=== PATIENT | female | born 1965 | race Caucasian/White ===

== ENCOUNTER 2023-11-15 04:30 | Inpatient (IN) | payer MEDICARE, MEDICAID, SELFPAY ==
[2023-11-14 20:35] VITALS: BP 92/73; BMI 30.3
[2023-11-14 21:00] LABS: % Basophils 0.3 % (0-2); % Eosinophils 0.8 % (0-6); % Immature Granulocytes 0.5 % (0-0.5); % Lymphocytes 10.2 % (20.5-51.1); % Monocytes 5.4 % (1.7-9.3); % Neutrophils 82.8 % (42.2-75.2); Absolute Eosinophils 0.1 10^3/uL (0-0.7); Absolute Lymphocytes 0.7 10^3/uL (1.2-3.4); Absolute Monocytes 0.4 10^3/uL (0.1-0.6); Absolute Neutrophils 5.5 10^3/uL (1.4-6.5); Hematocrit 36.2 % (37.0-47.0); Hemoglobin 12.1 g/dL (12.0-16.0); Mean Corp Hgb Conc. 33.4 g/dL (33.0-37.0); Mean Corpuscular Hgb 32.3 pg (27.0-31.0); Mean Corpuscular Volume 96.5 fL (81.0-99.0); Mean Platelet Volume 11.2 fL (7.4-10.4); Nucleated Red Blood Cells % 0 %; Platelet Count 381 10^3/uL (130-400); Red Blood Cell Count 3.75 10^6/uL (4.20-5.40); Red Cell Dist. Width 17.7 % (11.5-14.5); White Blood Cell Count 6.6 10^3/uL (4.8-10.8)
[2023-11-14 21:33] LABS: ALT (SGPT) 90 U/L (0-35); AST (SGOT) 121 U/L (14-36); Albumin 2.9 g/dl (3.5-5.0); Alkaline Phosphatase 1081 U/L (38-126); Blood Urea Nitrogen 14 mg/dl (7-17); Carbon Dioxide 17 mmol/L (22-30); Chloride 105 mmol/L (98-107); Estimated Creatinine Clearance 78 ml/min; Glucose 227 mg/dl (70-99); Lipase 27 U/L (23-300); Potassium 3.4 mmol/L (3.5-5.1); Sodium 138 mmol/L (135-145); Total Protein 6.8 g/dl (6.3-8.2); eGFR > 60.00
[2023-11-14 21:53] LABS: Total Bilirubin 26.3 mg/dl (0.2-1.3)
[2023-11-14 22:38] VITALS: BP 132/72
--- NOTE | 2023-11-14 22:48 | ED TECH ---
This PCT was walking pt. and visitor to room 1. Pt. was slowly walking w a steady gait. This PCT offered a wheelchair for pt. Pt's visitor said 'she can make it'. This PCT turned around and pt. tripped over her feet and landed on hands and knees.
Pt. immediately stood up, stating 'I felt dizzy' and Leonidas PCT and myself assisted her into a wheelchair and brought to room 1. This PCT asked if was hurt and pt. stated 'I'm okay'.
[2023-11-14 23:00] VITALS: BP 102/79
--- NOTE | 2023-11-14 23:00 | ED.GENMED ---
History of Present Illness
<SHEELA Martinez - Last Filed: 11/15/23 01:58>
General
Chief Complaint: Abnormal Lab Value
Source: patient and family (POA - brother)
Time Seen by Provider: 11/14/23 22:41
Travel History
Have you had any contact with someone who has COVID-19?: No
Do you have any symptoms of coronavirus? Fever > 100 degrees, chills, cough, shortness of breath, sore throat, loss of taste or smell, muscle aches, or headache?: No
History of Present Illness
History of Present Illness:
Pt is a 58 year old female presenting to the ER with her brother (Chaparro) for jaundice and worsening diarrhea x 3 days. Pt has a PMHx of developmental delay, schizophrenia which she takes risperidone and benztropine for, and lives at home with her
brother who is her POA. He states approximately 10 days ago her appetite decreased and she vomited once or twice. She has been having diarrhea for approximately 1 week, but in the last 3 days it has become increasingly severe. She has taken nothing
to attempt to relieve her diarrhea. He states she has commented on mild lower abdominal pain and back pain and states it comes and goes. While she is itchy he states that is not new for her as she frequently itches. He denies any fever, headache,
chest pain, significant SOB, palpitations, or urinary symptoms. He states their mother, who passed last year, had her gallbladder removed. He states his sister does not smoke or drink alcohol.
Past History
<SHEELA Martinez - Last Filed: 11/15/23 01:58>
Past History
ED Past Medical History: Psychiatric
Social History
Tobacco: Non-smoker
Alcohol: None
Living: with family
Review of Systems
<SHEELA Martinez - Last Filed: 11/15/23 01:58>
Review of Systems
Allergies reviewed?: Yes
Other source history: family
EENT: Reports no symptoms
Respiratory: Reports no symptoms
Cardiac: Reports no symptoms
ABD/GI: Reports abdominal pain, vomiting, diarrhea and anorexia
: Reports no symptoms
Musculoskeletal: Reports back pain
Skin: Reports itching and other (jaundice)
Endocrine: Reports no symptoms
Hematologic/Lymphatic: Reports no symptoms
Psychiatric: Reports no symptoms
Phy Exam
<SHEELA Martinez - Last Filed: 11/15/23 01:58>
General Physical Exam
General Presentation: no apparent distress
General age: appears stated age
General Skin: other (significantly jaundiced)
General Habitus: obese
Gastrointestinal Exam
Gastrointestinal Exam: normal bowel sounds and tender
Palpation: left upper quadrant: Mild tenderness (no facial grimace with palpation ), right upper quadrant: Mild tenderness (no facial grimace with palpation ) and right lower quadrant: Mild tenderness (no facial grimace with palpation )
Liver Exam: other (negative asterixis )
Neurological Exam
Neurological Exam: alert
Skin Exam
Skin Exam: jaundice
Psychiatric Exam
Psychiatric Exam: normal mood/affect
Course
<Marina Catalan [facility] - Last Filed: 11/15/23 01:58>
Orders/Labs/Results
Orders:
Orders
11/14/23 20:51
Complete Blood Count/With Diff Urgent
Comprehensive Metabolic Panel Urgent
Lipase Urgent
11/14/23 22:42
US Abdomen Complete/Upper Urgent
Comment:
Reason For Exam: Jaundice, elev tbili
11/15/23 00:00
CT Abd/pelvis W Iv Cont Urgent
Comment:
Reason For Exam: abdoinal painjaundice, distended GB
11/15/23 00:15
0.9% Sodium Chloride 1000 ml [Nss] 1,000 ml IV 250 mls/hr
11/15/23 01:16
Hepatitis A IgM Antibody Urgent
Hepatitis B Core Ab, IgM Urgent
Hepatitis B Surface Antibody Urgent
Hepatitis B Surface Antigen Urgent
Hepatitis C Antibody Urgent
PTT Urgent
Prothrombin Time Urgent
Abnormal Lab Results
11/14/23 11/15/23
20:51 01:16
RBC 3.75 L 10^6/uL
(4.20-5.40)
Hct 36.2 L %
(37.0-47.0)
MCH 32.3 H pg
(27.0-31.0)
RDW 17.7 H %
(11.5-14.5)
MPV 11.2 H fL
(7.4-10.4)
Absolute Lymphs (auto) 0.7 L 10^3/uL
(1.2-3.4)
Neutrophils % 82.8 H %
(42.2-75.2)
Lymphocytes % 10.2 L %
(20.5-51.1)
PT 21.4 H Sec
(11.4-14.6)
APTT 50.3 H Sec
(23.4-35.0)
Potassium 3.4 L mmol/L
(3.5-5.1)
Carbon Dioxide 17 L mmol/L
(22-30)
Glucose 227 H mg/dl
(70-99)
Total Bilirubin 26.3 H* mg/dl
(0.2-1.3)
AST 121 H U/L
(14-36)
ALT 90 H U/L
(0-35)
Alkaline Phosphatase 1081 H U/L
(38-126)
Albumin 2.9 L g/dl
(3.5-5.0)
11/14/23 20:51
11/14/23 20:51
Vital Signs
Initial and Last Documented VS:
Initial Vital Signs
Temp Pulse Resp BP Pulse Ox
99.2 F 97 16 92/73 100
11/14/23 20:35 11/14/23 20:35 11/14/23 20:35 11/14/23 20:35 11/14/23 20:35
Last Documented Vital Signs
Temp Pulse Resp BP Pulse Ox
99.2 F 71 21 103/57 100
11/14/23 20:35 11/15/23 02:30 11/15/23 02:30 11/15/23 02:00 11/15/23 02:30
<Juan Jose Jorge, DO - Last Filed: 11/15/23 02:53>
Orders/Labs/Results
Orders:
Orders
11/14/23 20:51
Complete Blood Count/With Diff Urgent
Comprehensive Metabolic Panel Urgent
Lipase Urgent
11/14/23 22:42
US Abdomen Complete/Upper Urgent
Comment:
Reason For Exam: Jaundice, elev tbili
11/15/23 00:00
CT Abd/pelvis W Iv Cont Urgent
Comment:
Reason For Exam: abdoinal painjaundice, distended GB
11/15/23 00:15
0.9% Sodium Chloride 1000 ml [Nss] 1,000 ml IV 250 mls/hr
11/15/23 01:16
Hepatitis A IgM Antibody Urgent
Hepatitis B Core Ab, IgM Urgent
Hepatitis B Surface Antibody Urgent
Hepatitis B Surface Antigen Urgent
Hepatitis C Antibody Urgent
PTT Urgent
Prothrombin Time Urgent
Abnormal Lab Results
11/14/23 11/15/23
20:51 01:16
RBC 3.75 L 10^6/uL
(4.20-5.40)
Hct 36.2 L %
(37.0-47.0)
MCH 32.3 H pg
(27.0-31.0)
RDW 17.7 H %
(11.5-14.5)
MPV 11.2 H fL
(7.4-10.4)
Absolute Lymphs (auto) 0.7 L 10^3/uL
(1.2-3.4)
Neutrophils % 82.8 H %
(42.2-75.2)
Lymphocytes % 10.2 L %
(20.5-51.1)
PT 21.4 H Sec
(11.4-14.6)
APTT 50.3 H Sec
(23.4-35.0)
Potassium 3.4 L mmol/L
(3.5-5.1)
Carbon Dioxide 17 L mmol/L
(22-30)
Glucose 227 H mg/dl
(70-99)
Total Bilirubin 26.3 H* mg/dl
(0.2-1.3)
AST 121 H U/L
(14-36)
ALT 90 H U/L
(0-35)
Alkaline Phosphatase 1081 H U/L
(38-126)
Albumin 2.9 L g/dl
(3.5-5.0)
11/14/23 20:51
11/14/23 20:51
Vital Signs
Initial and Last Documented VS:
Initial Vital Signs
Temp Pulse Resp BP Pulse Ox
99.2 F 97 16 92/73 100
11/14/23 20:35 11/14/23 20:35 11/14/23 20:35 11/14/23 20:35 11/14/23 20:35
Last Documented Vital Signs
Temp Pulse Resp BP Pulse Ox
99.2 F 71 21 103/57 100
11/14/23 20:35 11/15/23 02:30 11/15/23 02:30 11/15/23 02:00 11/15/23 02:30
<SHEELA Martinez - Last Filed: 11/15/23 01:58>
MDM/Problems Addressed
Differential Diagnosis Includes:
Acute liver toxicity due to medication, cirrhosis, hepatitis, choledocholithiasis, biliary tract infection, pancreatitis
MDM/Problems Addressed:
Jaundice and diarrhea x 3 days
Chronic conditions affecting care: Neurological disorder
<SHEELA Martinez - Last Filed: 11/15/23 01:58>
*Critical Care Note
Total Time (30-74mins, 75-104mins- exclusive of procedures): Not Applicable
ED Attending Note
<SHEELA Martinez - Last Filed: 11/15/23 01:58>
-
Portions of this chart may have been created with voice recognition software.� Occasional wrong word or��sound alike� substitutions may have occurred due to the inherent limitations of voice recognition software.
<Juan Jose Jorge DO - Last Filed: 11/15/23 02:53>
ED Attending Note
Patient seen and examined by attending physician: Yes
I performed the substantive portion of visit, reviewed & personally made and approve the management plan that is documented in note by myself or MITCHEL.: Yes
ED Attending Note:
58-year-old female who presents with jaundice for the last 3 days. She has been having diarrhea during this time. Patient was seen by her primary care provider yesterday and had blood work drawn. Today patient was told that her bilirubin was
elevated. Patient started on risperidone recently. No recent illnesses, or heavy alcohol consumption reported. Patient was seen in conjunction with the PA student. I have reviewed and agree with the history and treatment plan presented. On my
independent physical exam, patient is awake, at baseline according to brother. Brother states that patient has developmental delays. Patient is in no respiratory distress. She answers with simple answers. There is positive scleral icterus. She
presents with jaundice to her skin. Heart is regular rate and rhythm. Abdomen is soft slightly obese.
Vital signs are stable. Patient not hypoxic
Nursing note reviewed. I agree with nursing documentation up to this point in time.
Home Meds and allergies reviewed.
NUMBER AND COMPLEXITY OF PROBLEMS ADDRESSED AT THE ENCOUNTER
� Chronic conditions affecting care:
� Acute Exacerbation and/or Progression of Chronic Illness:
� Differential Diagnosis includes: Pancreatic CVA, obstructing cholecystitis, hepatitis, medication change
AMOUNT AND/OR COMPLEXITY OF DATA TO BE REVIEWED AND ANALYZED
I performed an independent evaluation of the following and my interpretation is:
EKG:
CT:
X-rays:
Ultrasound:
Laboratory Studies: Total bilirubin is 26.3, AST is 121, ALT is 90, alk phos is 1081.
Other:
Review of other/old records:
Clinical information was obtained by an independent historian:
Prescriptions/Medications Considered but not given:
Further testing considered but not performed:
RISK OF COMPLICATIONS AND/OR MORBIDITY OR MORTALITY OF PATIENT MANAGEMENT
Social determinants of health affecting care: Good Social Support
Discussion with other providers:
Escalation of care including admission/observation vs risk of discharge considered:
CRITICAL CARE NOTE:
Critical care statement: A total of 30 minutes of critical care time was provided for this patient. This time is separate from time utilized to perform the aforementioned documented procedures. Aggregate critical care time includes only time
during which I was engaged in work directly related to the patient's care, as described above, whether at the bedside or elsewhere in the Emergency Department.
Total Time (exclusive of procedures):30
Update:
Discharge Plan
Departure
Patient Disposition: Admit
Date of Disposition: 11/15/23
Time of Disposition: 02:52
Admit to: IMU
Presentation/result/management discussed w/ accepting MD/DO: Hospitalist
Patient with high blood pressure during this ER visit?: No
Condition: Fair
Discharge Problem:
Painless jaundice, Adenocarcinoma of pancreas
Referrals:
Fitz Modi MD [Family Provider] -
Interventions
Interventions:
*Risk Screen - Suicide Last Done: 11/14/23 20:35
*General Assessment Last Done: 11/15/23 01:26
*Neglect/Abuse Screening Last Done: 11/14/23 20:35
*ED COVID-19 Vaccine History Last Done: 11/14/23 20:35
[2023-11-14 23:56] VITALS: BP 92/69
[2023-11-15] VITALS (32 sets, daily range): BP systolic 93–138; BP diastolic 57–103; PULSE 65–88; O2SAT 98–100; BMI 32.2
[2023-11-15] MEDS: NSS 1000 IV ×2 (01:23→05:36)
[2023-11-15 01:41] LABS: INR 1.84; PT 21.4 Sec (11.4-14.6)
[2023-11-15 01:42] LABS: APTT 50.3 Sec (23.4-35.0)
[2023-11-15 03:07] LABS: Hepatitis A IgM Antibody Negative (Negative); Hepatitis B Core Ab, IgM Negative (Negative); Hepatitis B Surface Antibody Negative; Hepatitis B Surface Antigen Negative (Negative); Hepatitis C Antibody Negative (Negative)
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
[2023-11-15 05:41] LABS: B-Hydroxybutyrate 0.21 mmol/L (0.02-0.27)
[2023-11-15] MEDS: LR 1000 IV ×2 (07:45→19:32)
[2023-11-15 08:17] LABS: Glucose - Point of Care 137 mg/dl (70-99)
[2023-11-15] MEDS: RISPERDAL 2 MG PO ×2 (08:19→20:15)
[2023-11-15] MEDS: NSS (PRESERVATIVE FREE) 10 ML IV (08:19)
[2023-11-15] MEDS: PROTONIX IV 40 MG IV (08:19)
[2023-11-15] MEDS: COGENTIN 1 MG PO ×2 (08:19→20:15)
[2023-11-15] MEDS: NOVOLOG FLEXPEN-LOW RESISTANCE SC ×3 (08:19→16:45)
--- NOTE | 2023-11-15 08:38 | PHANOTE ---
Contacted brother Keith Dunne [care-nanny caregiver] to complete medication reconciliation.
[2023-11-15 08:51] LABS: TSH Reflex To Free T4 0.39 uIU/ml (0.47-4.68)
--- NOTE | 2023-11-15 09:07 | CON.GI ---
Addendum entered and electronically signed by Dedrick Chadwick MD 11/15/23 12:47:
I saw and examined the patient.
The SOAP MAKER's note was reviewed and I agree with the note.
Painless jaundice-CT imaging showing pancreatic head mass with biliary/pancreatic duct dilatation.
plan
Discussed with Dr. Hernandez. Patient will be scheduled for EUS + FNA/ERCP with biliary decompression today. Her brother will give consent for the procedure
Check CA 19-9, CEA
Oncology eval
Original Note:
Consultation
-
Date/Time Consultation Requested: 11/15/23 @ 07:07
Date/Time Consultation Performed: 11/15/23 @ 09:00
Requesting Provider: Dr. Escobar
Performing Provider: DAPHNE العلي; Dr. Chadwick
Reason for Consultation: jaundice, pancreatic mass
Medical History
Chief Complaint / HPI
Chief Complaint: jaundice
History of Present Illness:
The patient is a 58-year-old female with a past medical history significant for cognitive impairment, bipolar disorder, who presented to the emergency room with complaints of jaundice. We are being asked to evaluate for concern for pancreatic
cancer with obstructive jaundice. The patient reports that she had been having some abdominal pain on and off since Saturday. The pain is in the middle of her abdomen which comes and goes. It is not severe in nature but nothing makes it better or
worse. She also notes that about 2 to 3 days ago she started noticing her skin was yellow as well. She does live with her brother Layo, who confirms this. He also notes she has been having diarrhea on and off for the past several weeks, which has
been worse this past week. He reports that at her PCP visit she had been losing some weight as well although does not indicate how much weight. The patient admits she has had a loss of appetite over the past week as well. She denies any nausea,
vomiting, fevers, chills, chest pain, or shortness of breath. She denies any dark urine. She denies any history of hepatitis or liver disease. She denies any alcohol use or illicit drug use. She denies any use of blood thinners or NSAIDs. There
is no family history of pancreatic cancer or colon cancer. Upon workup in the emergency room, ultrasound imaging showed a markedly enlarged gallbladder with biliary ductal dilation. CT imaging was done which again re-demonstrated severe intra and
extrahepatic biliary ductal dilation with a 3.4 cm mass in the pancreatic head with pancreatic ductal dilation, and other findings as noted below. Routine labs on admission did show a bilirubin of 26.3, AST 121, ALT 90, alk phos 1081, lipase 27,
glucose 227, lactic acid 1.0, BUN 14, creatinine 0.9, potassium 3.4, sodium 138, hemoglobin 12.1, platelets 381,000. Hepatitis serologies were negative. TSH was low at 0.39 with free T4 pending. She was made n.p.o., started on IV fluids, and
admitted for further evaluation by GI, pending MRI with MRCP.
Past Medical History
Past Medical History: Psychiatric (Bipolar disorder) and Other (cognitive impairment)
Past Surgical History: Other (skin graft as a child, nasal cauterization for nosebleeds)
Social History
Tobacco: Non-Smoker
Alcohol: None
Drug: None
Personal: Single
Living: With Family (Lives with her brother)
Employment: Not Employed
Family History
Family History: Cancer (Lung cancer paternal grandfather) and Other (Cardiac disease among the patient's mother and paternal grandmother; brother Keith has A-fib)
Allergies / Home Medications
Allergy/AdvReac Type Severity Reaction Status Date / Time
No Known Allergies Allergy Unverified 11/14/23 20:42
Medication Instructions Recorded
benztropine 1 mg tablet 1 mg PO BID Mental Health/Anxiety 11/15/23
risperidone 2 mg tablet 2 mg PO BID Mental Health/Anxiety 11/15/23
Review of Systems
-
History Source: Patient and Family
Constitutional: Reports Weight Loss
EENT: Reports No Symptoms
Respiratory: Reports No Symptoms
Cardiac: Reports No Symptoms
Abdomen/GI: Reports Abdominal Pain, Diarrhea and Anorexia
: Reports No Symptoms
Musculoskeletal: Reports No Symptoms
Skin: Reports Other (Jaundice)
Neurological: Reports No Symptoms
Vital Signs
Temp Pulse Resp BP Pulse Ox
98.2 F 72 20 97/61 99
11/15/23 08:02 11/15/23 06:49 11/15/23 06:49 11/15/23 06:49 11/15/23 08:02
Physical Exam
Exam
General: No Apparent Distress, Comfortable and Other (Grossly jaundiced)
HEENT: Normocephalic, Atraumatic and Other (Bilateral scleral icterus)
Respiratory: Clear
Cardiac: S1/S2 and Regular Rhythm
Breast: Deferred by me
GI: Soft, Non Tender, Non Distended and Normal Bowel Sounds
Rectal: Deferred by Provider
Musculoskeletal: No Edema
Skin: Warm, Dry and Other (Jaundice)
Neuro: Awake, Alert and Oriented
Psych: Calm
Results
WBC 6.6 10^3/uL (4.8-10.8) 11/14/23 20:51
Hgb 12.1 g/dL (12.0-16.0) 11/14/23 20:51
Hct 36.2 % (37.0-47.0) L 11/14/23 20:51
MCV 96.5 fL (81.0-99.0) 11/14/23 20:51
Plt Count 381 10^3/uL (130-400) 11/14/23 20:51
Absolute Neuts (auto) 5.5 10^3/uL (1.4-6.5) 11/14/23 20:51
PT 21.4 Sec (11.4-14.6) H 11/15/23 01:16
INR 1.84 11/15/23 01:16
APTT 50.3 Sec (23.4-35.0) H 11/15/23 01:16
Sodium 138 mmol/L (135-145) 11/14/23 20:51
Potassium 3.4 mmol/L (3.5-5.1) L 11/14/23 20:51
Chloride 105 mmol/L (98-107) 11/14/23 20:51
Carbon Dioxide 17 mmol/L (22-30) L 11/14/23 20:51
BUN 14 mg/dl (7-17) 11/14/23 20:51
Creatinine 0.9 mg/dL (0.6-1.0) 11/14/23 20:51
Calcium 9.0 mg/dl (8.4-10.2) 11/14/23 20:51
Total Bilirubin 26.3 mg/dl (0.2-1.3) H* 11/14/23 20:51
AST 121 U/L (14-36) H 11/14/23 20:51
ALT 90 U/L (0-35) H 11/14/23 20:51
Alkaline Phosphatase 1081 U/L (38-126) H 11/14/23 20:51
Lipase 27 U/L (23-300) 11/14/23 20:51
Hepatitis A IgM Ab Negative (Negative) 11/15/23 01:16
Hep Bs Antibody Negative 11/15/23 01:16
Hep B Core IgM Ab Negative (Negative) 11/15/23 01:16
Hepatitis C Antibody Negative (Negative) 11/15/23 01:16
Diagnostic Image Results:
11/13/22 US abdomen: 'Overall limited evaluation, as detailed above. Relative enlarged gallbladder containing stones.� Borderline gallbladder wall thickening. Hepatomegaly. Intrahepatic and extrahepatic biliary tract dilatation. Pancreas, abdominal
aorta and IVC significantly obscured, at least in part due to overlying bowel gas.'
11/15/23 CT A/P w/ IV contrast:
1. � Severely limited examination due to patient inability to cooperate. Motion artifact limits evaluation for any subtle abnormality.
2. � Hepatomegaly. No discrete mass identified, however severely limited due to patient motion.
3. � Severe intra and extrahepatic biliary ductal dilatation. Unfortunately due to patient motion I cannot evaluate for intraluminal filling defect within the common bile duct distally.
4. � Limited evaluation of the pancreas due to motion. There is a 3.4 cm mass in the pancreatic head, with subsequent pancreatic atrophy and ductal dilatation. Contrast-enhanced MRI of the pancreas and MRCP is recommended.
5. � Gallbladder hydrops. Cholelithiasis. No definite gallbladder wall thickening. No pericholecystic inflammatory changes.
6. � Given the patient's inability to hold still, MRCP would be extremely limited. The patient should be sedated if attempted. Otherwise ERCP is recommended.
7. � Prominent extrarenal pelves bilaterally. No hydronephrosis. Parapelvic cysts on the left.
8. � No bowel obstruction. Diverticulosis.
9. � Splenomegaly.
10. � No free air. No fluid collection. Trace amount of free fluid in the pelvis.
Prior GI Procedures:
EGD: unknown (pt denies)
Colonoscopy: unknown (pt denies)
Assessment / Plan
-
The patient is a 58-year-old female with a past medical history significant for cognitive impairment, bipolar disorder, who presented to the emergency room with complaints of jaundice. We are being asked to evaluate for concern for pancreatic
cancer with obstructive jaundice. The patient has had complaints of diarrhea, abdominal pain for the past week, with acute onset of jaundice. Bilirubin 26.3 on admission, with CT and ultrasound imaging showing severe intrahepatic and extrahepatic
biliary ductal dilation along with pancreatic mass and pancreatic ductal dilation concerning for underlying malignancy. No significant prior history or family history of pancreatic cancer. She denies alcohol use which is confirmed by her brother.
Currently appears comfortable.
Problem list:
-Jaundice
-CT findings showing pancreatic mass, severe intra and extrahepatic ductal dilation, pancreatic ductal dilation
-Abdominal pain
-Elevated LFT's
-Hypokalemia
-Elevated INR
-History of bipolar disorder
-Cognitive impairment
Recommendations:
-Etiology of jaundice and abdominal pain concerning for underlying pancreatic malignancy versus other biliary etiology versus other.
-Discussed the case with Dr. Hernandez, who recommends EUS +/- ERCP for further evaluation. The patient is agreeable to this plan, along with her brother Keith with who is her disability representative. He will be the person to consent for this procedure. He can be
reached via his cell at [phone] or after 12:00 noon at his work at [phone] option 2.
-Trend LFTs
-MRI with and without contrast as ordered, discussed with Dr. Hernandez does not need MRCP
-Continue n.p.o. at this time
-IV fluids as per hospitalist
-Replete potassium
-Will review INR level with Dr. Hernandez for procedure purposes
-Further plans pending above
-CEA and CA 19�9 markers ordered and pending
-Eventual oncology evaluation
-Will follow
Data Reviewed
-
CT Scan: Report Reviewed by me and Discussed with Physician
Ultrasound: Report Reviewed by me and Discussed with Physician
-
-
Thank you for consultation and allowing me to participate in the patient's care. Please call the continuous washer operator GI physician during the after hours with any questions or concerns.
[2023-11-15 09:22] LABS: Free T4 2.06 ng/dl (0.78-2.19)
[2023-11-15] MEDS: KCL 270 MEQ IV (10:45)
[2023-11-15 12:14] LABS: Glucose - Point of Care 116 mg/dl (70-99)
--- NOTE | 2023-11-15 12:43 | W.PN.HOSP.TC ---
Today's Communication/Plan
-
Replete potassium
Check magnesium
Await EUS, ERCP, MRI
Assessment / Plan
Assessment / Plan
Gen-AAOx3, NAD
HEENT-NC, AT, anicteric, clear oral mm
Neck-supple
CV-reg, no M, +S1/S2
Lungs-clear B/L
Abd-soft, NT, ND
Ext-no edema
Musculoskeletal-no cyanosis, clubbing
Skin-warm and dry
Neuro-grossly non-focal
Psych-calm, cooperative
Obstructive jaundice -likely due to pancreatic head mass. Awaiting EUS, ERCP. NPO. GI consulted. Strong suspicion for pancreatic cancer.
Abdominal MRI ordered.
Elevated LFTs noted. Viral hepatitis panel negative.
High anion gap metabolic acidosis -anion gap 16 on admission, will monitor. Beta hydroxybutyrate normal.
Hypokalemia -replete intravenously. Check magnesium.
Hyperglycemia -rule out diabetes mellitus. Check hemoglobin A1c.
Bipolar disorder
Cognitive impairment
obesity due to excess calories
Full code
Anticipated Discharge: > 48 hours
Subjective/Interval History
-
Date of Service: November 15, 2023
Patient seen and examined. Complaining of abdominal pain.
Objective Data
-
Labs:
Laboratory Results
11/15/23
01:16
PT 21.4 H
INR 1.84
APTT 50.3 H
Vital Signs:
Vital Signs
Temp Pulse Resp BP Pulse Ox
98.2 F 60 26 106/62 93
11/15/23 08:02 11/15/23 09:30 11/15/23 09:30 11/15/23 09:00 11/15/23 09:00
Review of Systems
-
History Source: Patient
All other systems: Reviewed and negative
[2023-11-15 13:41] LABS: Magnesium 1.9 mg/dl (1.6-2.3)
[2023-11-15 14:23] LABS: Glycohemoglobin (HgbA1c) 5.9 % (4.0-5.6)
--- NOTE | 2023-11-15 16:01 | PTCARENOTE ---
Pt to room 3315 NPO Iv fluids running as ordered , PT ON RA100% Pt is jaundice GI called pt for ERCP
[2023-11-15 16:25] LABS: Glucose - Point of Care 135 mg/dl (70-99)
[2023-11-15 18:16] LABS: Glucose - Point of Care 126 mg/dl (70-99)
[2023-11-15] MEDS: LEVOPHED 250 IV (18:59)
--- NOTE | 2023-11-15 20:31 | W.PN.UPDATE ---
Update Note
Progress Note Update
RN reports LODGING MANAGER that patient has been having diarrhea for last one week per AM nurse, is on enhanced precautions, no stool studies have been done. Possible that Diarrhea is due to the evolving condition at present. Will do stool study to rule out,
Unknown if patient was on any antibiotics previous, traveled or any exposure. will order stool for C-diff, WBC, and stool culture.
[2023-11-16] VITALS (17 sets, daily range): BP systolic 86–111; BP diastolic 47–71; BMI 33.0
[2023-11-16 00:40] LABS: Glucose - Point of Care 174 mg/dl (70-99)
--- NOTE | 2023-11-16 01:15 | PTCARENOTE ---
Rec'd pt from PACU, LR running as ordered. Maintaining 95-100% RA, BP stable. SR, HR 40s-50s. Pt resting comfortably in bed. I spoke to pt's brother and caregiver Layo on the phone, who expressed extensive family hx of afib, but states pt has not had
any episodes herself. Layo states that pt has cognitive level of 8-9 y/o and is highly suggestible and agreeable, making it difficult to assess symptoms, such as pain.
[2023-11-16] MEDS: LR 1000 IV (04:30)
[2023-11-16 04:40] LABS: Hemoglobin 10.4 g/dL (12.0-16.0); Mean Corp Hgb Conc. 33.5 g/dL (33.0-37.0); Mean Corpuscular Hgb 31.8 pg (27.0-31.0); Mean Corpuscular Volume 94.8 fL (81.0-99.0); Mean Platelet Volume 10.5 fL (7.4-10.4); Platelet Count 296 10^3/uL (130-400); Red Blood Cell Count 3.27 10^6/uL (4.20-5.40); White Blood Cell Count 5.2 10^3/uL (4.8-10.8)
[2023-11-16 05:06] LABS: ALT (SGPT) 80 U/L (0-35); AST (SGOT) 104 U/L (14-36); Albumin 2.5 g/dl (3.5-5.0); Alkaline Phosphatase 968 U/L (38-126); Blood Urea Nitrogen 14 mg/dl (7-17); Calcium 8.6 mg/dl (8.4-10.2); Carbon Dioxide 17 mmol/L (22-30); Chloride 113 mmol/L (98-107); Direct Bilirubin 15.6 mg/dl (0.0-0.4); Estimated Creatinine Clearance 85 ml/min; Glucose 157 mg/dl (70-99); Magnesium 1.9 mg/dl (1.6-2.3); Potassium 4.2 mmol/L (3.5-5.1); Sodium 140 mmol/L (135-145); Total Bilirubin 17.8 mg/dl (0.2-1.3); Total Protein 6.1 g/dl (6.3-8.2); eGFR > 60.00
[2023-11-16] MEDS: RISPERDAL 2 MG PO ×2 (08:50→20:29)
[2023-11-16] MEDS: COGENTIN 1 MG PO ×2 (08:50→20:29)
[2023-11-16] MEDS: PROTONIX IV 40 MG IV (08:50)
[2023-11-16] MEDS: NSS (PRESERVATIVE FREE) 10 ML IV (08:50)
--- NOTE | 2023-11-16 08:56 | W.PN.HOSP.TC ---
Today's Communication/Plan
-
Await MRI abdomen
Advance diet if okay with GI
Assessment / Plan
Assessment / Plan
Gen-AAOx3, NAD
HEENT-NC, AT, anicteric, clear oral mm
Neck-supple
CV-reg, no M, +S1/S2
Lungs-clear B/L
Abd-soft, NT, ND
Ext-no edema
Musculoskeletal-no cyanosis, clubbing
Skin-warm and dry, diffusely jaundiced
Neuro-grossly non-focal
Psych-calm, cooperative
Obstructive jaundice -likely due to pancreatic head mass. Strong suspicion for pancreatic cancer. Underwent successful EUS/ERCP 11/14. Single severe biliary stricture noted in the lower third of the main bile duct. Appeared to be malignant.
Severe CBD dilation noted. Biliary sphincterotomy performed and plastic stent placed in the left hepatic duct. LFTs slowly improving. Tolerating clear liquid diet. Would advance if okay with GI.
Abdominal MRI ordered, still pending.
Elevated LFTs noted. Viral hepatitis panel negative.
Normocytic anemia -hemoglobin 10.4. Suspect hemodilution from IV fluids accounting for drop in hemoglobin. No clinical evidence of bleeding. Monitor for now.
High anion gap metabolic acidosis -anion gap 16 on admission, will monitor. Beta hydroxybutyrate normal. Serum bicarb 17 today.
Hypokalemia -resolved. Magnesium normal.
Impaired fasting glucose -hemoglobin A1c 5.9%.
Bipolar disorder
Cognitive impairment
obesity due to excess calories
Full code
Anticipated Discharge: > 48 hours
Subjective/Interval History
-
Date of Service: November 16, 2023
Patient seen and examined, complaining of mild abdominal pain.
Objective Data
-
Labs:
Laboratory Results
11/16/23
04:28
WBC 5.2
Hgb 10.4 L
Hct 31.0 L
Plt Count 296 D
Sodium 140
Potassium 4.2
Chloride 113 H
Carbon Dioxide 17 L
BUN 14
Creatinine 0.8
Glucose 157 H
Calcium 8.6
Total Bilirubin 17.8 H
AST 104 H
ALT 80 H
Alkaline Phosphatase 968 H
Vital Signs:
Vital Signs
Temp Pulse Resp BP Pulse Ox
97.9 F 43 13 107/68 100
11/16/23 07:10 11/16/23 04:00 11/16/23 03:00 11/16/23 04:16 11/16/23 04:06
I&O
11/15/23 11/16/23 11/17/23
06:59 06:59 06:59
Intake Total 360 / 360
Balance 360 / 360
Review of Systems
-
History Source: Patient
All other systems: Reviewed and negative
[2023-11-16 09:11] LABS: Glucose - Point of Care 169 mg/dl (70-99)
[2023-11-16] MEDS: NOVOLOG FLEXPEN-LOW RESISTANCE SC ×2 (09:34→17:18)
[2023-11-16] MEDS: SODIUM BICARBONATE 1150 MEQ IV (11:27)
--- NOTE | 2023-11-16 12:58 | W.PN.GI.CBS2 ---
Today's Communication / Plan
-
Advance diet
Trend LFT
Oncology eval
Assessment / Plan
-
The patient is a 58-year-old female with a past medical history significant for cognitive impairment, bipolar disorder, who presented to the emergency room with complaints of jaundice. We are being asked to evaluate for concern for pancreatic
cancer with obstructive jaundice. The patient has had complaints of diarrhea, abdominal pain for the past week, with acute onset of jaundice. Bilirubin 26.3 on admission, with CT and ultrasound imaging showing severe intrahepatic and extrahepatic
biliary ductal dilation along with pancreatic mass and pancreatic ductal dilation concerning for underlying malignancy. No significant prior history or family history of pancreatic cancer. She denies alcohol use which is confirmed by her brother.
Currently appears comfortable.
Problem list:
-Painless jaundice-CT imaging showing pancreatic head mass with biliary/pancreatic duct dilatation.
Upper EUS 11/15/2023-
Impression:� � � � � � - Normal esophagus.
�� � � � � � � � � � � - A few fundic gland polyps.
�� � � � � � � � � � � - Normal duodenal bulb, first portion of the duodenum
�� � � � � � � � � � � and second portion of the duodenum.
�� � � � � � � � � � � - A mass was identified in the pancreatic head. This
�� � � � � � � � � � � was staged T2 Nx Mx by endosonographic criteria. Fine
�� � � � � � � � � � � needle aspiration performed.
�� � � � � � � � � � � - Two enlarged lymph nodes were visualized in the
�� � � � � � � � � � � peripancreatic region.
�� � � � � � � � � � � - There was dilation in the common bile duct which
�� � � � � � � � � � � measured up to 25 mm.
�� � � � � � � � � � � - There was no evidence of significant pathology in
�� � � � � � � � � � � the left lobe of the liver.
ERCP 11/15/2023
Impression:� � � � � � - A single severe biliary stricture was found in the
�� � � � � � � � � � � lower third of the main bile duct. The stricture was
�� � � � � � � � � � � malignant appearing.
�� � � � � � � � � � � - The common bile duct was severely dilated.
�� � � � � � � � � � � - A biliary sphincterotomy was performed.
�� � � � � � � � � � � - One plastic stent was placed into the left hepatic
�� � � � � � � � � � � duct.
-History of bipolar disorder
-Cognitive impairment
Recommendations:
-Advance to low-fat diet
-Oncology eval
-CA 19-9 pending
-Awaiting MRI abdomen
-Follow-up path results with Dr. Hernandez
-Continue to trend LFT (trending down now )
Total Time Spent with Patient (in minutes): 35
Subjective
Subjective
Date of Service: November 16, 2023
Denies any abdominal pain/nausea/vomiting. Tolerating clear liquid diet
Objective
Data Reviewed
Laboratory Data:
Laboratory Results
11/16/23 04:28
11/16/23 04:28
Laboratory Results
PT 21.4 Sec (11.4-14.6) H 11/15/23 01:16
INR 1.84 11/15/23 01:16
APTT 50.3 Sec (23.4-35.0) H 11/15/23 01:16
Magnesium 1.9 mg/dl (1.6-2.3) 11/16/23 04:28
Total Bilirubin 17.8 mg/dl (0.2-1.3) H 11/16/23 04:28
AST 104 U/L (14-36) H 11/16/23 04:28
ALT 80 U/L (0-35) H 11/16/23 04:28
Alkaline Phosphatase 968 U/L (38-126) H 11/16/23 04:28
Lipase 27 U/L (23-300) 11/14/23 20:51
Vital Signs and I&O:
Vital Signs
Temp Pulse Resp BP Pulse Ox
97.9 F 59 18 94/60 99
11/16/23 07:10 11/16/23 11:37 11/16/23 11:37 11/16/23 11:37 11/16/23 11:41
I&O
11/15/23 11/16/23 11/17/23
06:59 06:59 06:59
Intake Total 360 / 360 240 / 240
Balance 360 / 360 240 / 240
Physical Exam
Physical Exam
HEENT: Other (Icteric)
GI: Soft, Non Distended, Non Tender and Normal Bowel Sounds
[2023-11-16] MEDS: NOVOLOG FLEXPEN-LOW RESISTANCE 3 UNITS SC (13:15)
[2023-11-16 13:24] LABS: Glucose - Point of Care 258 mg/dl (70-99)
--- NOTE | 2023-11-16 13:41 | PTCARENOTE ---
Patient resting in bed eating low fat lunch. Responding to questions when asked. Denying pain during assessment. Skin is jaundice with edema on lower extremities. Incontinent of bladder, no bowel movement this shift. Compliant with plan of care.
[2023-11-16 17:28] LABS: Glucose - Point of Care 141 mg/dl (70-99)
[2023-11-16 20:03] LABS: CA 19-9 1392 U/mL (<=35)
[2023-11-16 21:22] LABS: Glucose - Point of Care 174 mg/dl (70-99)
[2023-11-17] VITALS (15 sets, daily range): BP systolic 93–122; BP diastolic 54–76; PULSE 66–95; BMI 34.3
[2023-11-17] MEDS: SODIUM BICARBONATE 1150 MEQ IV (00:31)
[2023-11-17 06:02] LABS: ALT (SGPT) 60 U/L (0-35); AST (SGOT) 67 U/L (14-36); Albumin 2.3 g/dl (3.5-5.0); Alkaline Phosphatase 806 U/L (38-126); Blood Urea Nitrogen 17 mg/dl (7-17); Calcium 7.8 mg/dl (8.4-10.2); Carbon Dioxide 24 mmol/L (22-30); Chloride 110 mmol/L (98-107); Estimated Creatinine Clearance 100 ml/min; Glucose 152 mg/dl (70-99); Potassium 3.6 mmol/L (3.5-5.1); Sodium 137 mmol/L (135-145); Total Bilirubin 11.5 mg/dl (0.2-1.3); Total Protein 5.4 g/dl (6.3-8.2); eGFR > 60.00
[2023-11-17 06:03] LABS: % Basophils 0.6 % (0-2); % Eosinophils 1.4 % (0-6); % Immature Granulocytes 0.8 % (0-0.5); % Lymphocytes 22.3 % (20.5-51.1); % Monocytes 5.7 % (1.7-9.3); % Neutrophils 69.2 % (42.2-75.2); Absolute Eosinophils 0.1 10^3/uL (0-0.7); Absolute Lymphocytes 1.1 10^3/uL (1.2-3.4); Absolute Monocytes 0.3 10^3/uL (0.1-0.6); Absolute Neutrophils 3.5 10^3/uL (1.4-6.5); Hematocrit 29.9 % (37.0-47.0); Mean Corp Hgb Conc. 33.4 g/dL (33.0-37.0); Mean Corpuscular Hgb 32.1 pg (27.0-31.0); Mean Corpuscular Volume 95.8 fL (81.0-99.0); Mean Platelet Volume 11.1 fL (7.4-10.4); Nucleated Red Blood Cells % 0 %; Platelet Count 270 10^3/uL (130-400); Red Blood Cell Count 3.12 10^6/uL (4.20-5.40); Red Cell Dist. Width 17.2 % (11.5-14.5); White Blood Cell Count 5.1 10^3/uL (4.8-10.8)
--- NOTE | 2023-11-17 06:27 | PTCARENOTE ---
Pt AAOx3, but suggestible. Incontinent of dark orange/brown urine. Pw replaced and hygiene care provided, no BM this shift. Pt remains very jaundice. Call cheng within reach and bed alarm in place for patient safety, however pt made no attempts to
get OOB
[2023-11-17 07:57] LABS: Glucose - Point of Care 151 mg/dl (70-99)
--- NOTE | 2023-11-17 08:00 | W.PN.HOSP.TC ---
Today's Communication/Plan
-
Check orthostatic vitals
Oncology consult
Stop bicarb drip
Transfer out of IMU if remains stable
Assessment / Plan
Assessment / Plan
Gen-AAOx3, NAD
HEENT-NC, AT, bilateral scleral icterus, clear oral mm
Neck-supple
CV-reg, no M, +S1/S2
Lungs-clear B/L
Abd-soft, NT, ND
Ext-no edema
Musculoskeletal-no cyanosis, clubbing
Skin-warm and dry, diffusely jaundiced
Neuro-grossly non-focal
Psych-calm, cooperative
Obstructive jaundice - likely due to pancreatic head mass. Strong suspicion for pancreatic cancer. CA 19�9 1392. Underwent successful EUS/ERCP 11/14. Single severe biliary stricture noted in the lower third of the main bile duct. Appeared to be
malignant. Severe CBD dilation noted. Biliary sphincterotomy performed and plastic stent placed in the left hepatic duct.
LFTs improving. Tolerating solid food.
Abdominal MRI ordered, still pending.
Elevated LFTs due to obstructive mass.
Consult oncology.
Normocytic anemia -hemoglobin 10.0. Suspect hemodilution from IV fluids accounting for drop in hemoglobin. No clinical evidence of bleeding. Monitor for now.
High anion gap metabolic acidosis -anion gap 16 on admission, will monitor. Beta hydroxybutyrate normal. Bicarb improved to 24 on IV bicarbonate drip, can discontinue drip.
Hypokalemia -resolved. Magnesium normal.
Impaired fasting glucose -hemoglobin A1c 5.9%. Hyperglycemia also related to pancreatic mass.
Bipolar disorder
Cognitive impairment
Obesity due to excess calories
Full code
Anticipated Discharge: 24 - 48 hours
Subjective/Interval History
-
Date of Service: November 17, 2023
Patient seen and examined. Denies abdominal pain. No complaints.
Objective Data
-
Labs:
Laboratory Results
11/17/23
05:36
WBC 5.1
Hgb 10.0 L
Hct 29.9 L
Plt Count 270
Sodium 137
Potassium 3.6
Chloride 110 H
Carbon Dioxide 24
BUN 17
Creatinine 0.7
Glucose 152 H
Calcium 7.8 L
Total Bilirubin 11.5 H
AST 67 H
ALT 60 H
Alkaline Phosphatase 806 H
Vital Signs:
Vital Signs
Temp Pulse Resp BP Pulse Ox
98.1 F 42 16 106/70 94
11/17/23 07:30 11/17/23 04:00 11/17/23 04:00 11/17/23 04:00 11/17/23 04:00
I&O
11/16/23 11/17/23 11/18/23
06:59 06:59 06:59
Intake Total 360 / 360 1560 / 1560
Output Total 200 / 200
Balance 360 / 360 1360 / 1360
Review of Systems
-
History Source: Patient
All other systems: Reviewed and negative
[2023-11-17] MEDS: NOVOLOG FLEXPEN-LOW RESISTANCE 1 UNITS SC ×2 (08:19→17:17)
[2023-11-17] MEDS: COGENTIN 1 MG PO ×2 (08:20→21:05)
[2023-11-17] MEDS: RISPERDAL 2 MG PO ×2 (08:20→21:05)
[2023-11-17] MEDS: PROTONIX IV 40 MG IV (08:20)
[2023-11-17] MEDS: NSS (PRESERVATIVE FREE) 10 ML IV (08:20)
--- NOTE | 2023-11-17 09:01 | PTCARENOTE ---
Rerc'd pt this AM. Ortho vitals completed. BP did lower and HR elevated. pt reported dizziness on standing. OOB to chair, chair alarm in place. tolerataed breakfast. pleasant, cooperative
[2023-11-17] MEDS: NSS 500 IV (09:52)
--- NOTE | 2023-11-17 11:50 | W.PN.GI.CBS2 ---
Today's Communication / Plan
-
Follow-up path results with Dr. Hernandez
GI outpatient follow-up
Oncology eval
Assessment / Plan
-
The patient is a 58-year-old female with a past medical history significant for cognitive impairment, bipolar disorder, who presented to the emergency room with complaints of jaundice. We are being asked to evaluate for concern for pancreatic
cancer with obstructive jaundice. The patient has had complaints of diarrhea, abdominal pain for the past week, with acute onset of jaundice. Bilirubin 26.3 on admission, with CT and ultrasound imaging showing severe intrahepatic and extrahepatic
biliary ductal dilation along with pancreatic mass and pancreatic ductal dilation concerning for underlying malignancy. No significant prior history or family history of pancreatic cancer. She denies alcohol use which is confirmed by her brother.
Currently appears comfortable.
Problem list:
-Painless jaundice-CT imaging showing pancreatic head mass with biliary/pancreatic duct dilatation.
Upper EUS 11/15/2023-
Impression:� � � � � � - Normal esophagus.
�� � � � � � � � � � � - A few fundic gland polyps.
�� � � � � � � � � � � - Normal duodenal bulb, first portion of the duodenum
�� � � � � � � � � � � and second portion of the duodenum.
�� � � � � � � � � � � - A mass was identified in the pancreatic head. This
�� � � � � � � � � � � was staged T2 Nx Mx by endosonographic criteria. Fine
�� � � � � � � � � � � needle aspiration performed.
�� � � � � � � � � � � - Two enlarged lymph nodes were visualized in the
�� � � � � � � � � � � peripancreatic region.
�� � � � � � � � � � � - There was dilation in the common bile duct which
�� � � � � � � � � � � measured up to 25 mm.
�� � � � � � � � � � � - There was no evidence of significant pathology in
�� � � � � � � � � � � the left lobe of the liver.
ERCP 11/15/2023
Impression:� � � � � � - A single severe biliary stricture was found in the
�� � � � � � � � � � � lower third of the main bile duct. The stricture was
�� � � � � � � � � � � malignant appearing.
�� � � � � � � � � � � - The common bile duct was severely dilated.
�� � � � � � � � � � � - A biliary sphincterotomy was performed.
�� � � � � � � � � � � - One plastic stent was placed into the left hepatic
�� � � � � � � � � � � duct.
CA 19-9 was 1392
-History of bipolar disorder
-Cognitive impairment
Recommendations:
-Continue low-fat diet
-Oncology eval pending
-Awaiting MRI abdomen
-Follow-up path results with Dr. Hernandez. Follow-up with Dr. Hernandez as outpatient (message sent to the office)
-Continue to trend LFT (trending down now )
No further recommendation from GI at this point. will s/o. Okay to discharge from GI standpoint after oncology plan
Total Time Spent with Patient (in minutes): 35
Subjective
Subjective
Date of Service: November 17, 2023
Denies any complaints. Tolerating diet
Objective
Data Reviewed
Laboratory Data:
Laboratory Results
11/17/23 05:36
11/17/23 05:36
Laboratory Results
PT 21.4 Sec (11.4-14.6) H 11/15/23 01:16
INR 1.84 11/15/23 01:16
APTT 50.3 Sec (23.4-35.0) H 11/15/23 01:16
Magnesium 1.9 mg/dl (1.6-2.3) 11/16/23 04:28
Total Bilirubin 11.5 mg/dl (0.2-1.3) H 11/17/23 05:36
AST 67 U/L (14-36) H 11/17/23 05:36
ALT 60 U/L (0-35) H 11/17/23 05:36
Alkaline Phosphatase 806 U/L (38-126) H 11/17/23 05:36
Lipase 27 U/L (23-300) 11/14/23 20:51
Vital Signs and I&O:
Vital Signs
Temp Pulse Resp BP Pulse Ox
98.1 F 42 16 106/70 94
11/17/23 07:30 11/17/23 04:00 11/17/23 04:00 11/17/23 04:00 11/17/23 04:00
I&O
0311/17/23 11/18/23
06:59 06:59 06:59
Intake Total 360 / 360 1560 / 1560
Output Total 200 / 200
Balance 360 / 360 1360 / 1360
Physical Exam
Physical Exam
HEENT: Other (Icteric)
GI: Soft, Non Distended, Non Tender and Normal Bowel Sounds
[2023-11-17] MEDS: NOVOLOG FLEXPEN-LOW RESISTANCE 3 UNITS SC (12:09)
[2023-11-17 12:11] LABS: Glucose - Point of Care 278 mg/dl (70-99)
--- NOTE | 2023-11-17 14:39 | PTCARENOTE ---
RN jose de jesus Collado this AM regarding VS. 500ml bolus given. Pt OOB to chair, no complaints. Ate 100% of meals. Resting comfortably
[2023-11-17 16:31] LABS: Glucose - Point of Care 196 mg/dl (70-99)
--- NOTE | 2023-11-17 19:30 | PTCARENOTE ---
report recevied. pt aaox3. nsr. vss. jaundice romel. pt ambulated to bathroom. pt updated on plan of care. will monitor.
[2023-11-17 21:45] LABS: Glucose - Point of Care 179 mg/dl (70-99)
[2023-11-18] VITALS (12 sets, daily range): BP systolic 98–131; BP diastolic 55–85; PULSE 64; O2SAT 96; BMI 34.6; BMI 34.8
[2023-11-18 05:19] LABS: % Basophils 0.3 % (0-2); % Eosinophils 1.4 % (0-6); % Immature Granulocytes 0.9 % (0-0.5); % Lymphocytes 19.4 % (20.5-51.1); % Monocytes 6.3 % (1.7-9.3); % Neutrophils 71.7 % (42.2-75.2); Absolute Eosinophils 0.1 10^3/uL (0-0.7); Absolute Immature Granulocytes 0.1 10^3/uL (0-0.05); Absolute Lymphocytes 1.3 10^3/uL (1.2-3.4); Absolute Monocytes 0.4 10^3/uL (0.1-0.6); Absolute Neutrophils 4.7 10^3/uL (1.4-6.5); Hematocrit 30.4 % (37.0-47.0); Hemoglobin 10.2 g/dL (12.0-16.0); Mean Corp Hgb Conc. 33.6 g/dL (33.0-37.0); Mean Corpuscular Hgb 32.2 pg (27.0-31.0); Mean Corpuscular Volume 95.9 fL (81.0-99.0); Nucleated Red Blood Cells % 0 %; Platelet Count 273 10^3/uL (130-400); Red Blood Cell Count 3.17 10^6/uL (4.20-5.40); Red Cell Dist. Width 16.2 % (11.5-14.5); White Blood Cell Count 6.5 10^3/uL (4.8-10.8)
[2023-11-18 05:48] LABS: ALT (SGPT) 62 U/L (0-35); AST (SGOT) 77 U/L (14-36); Albumin 2.4 g/dl (3.5-5.0); Alkaline Phosphatase 708 U/L (38-126); Blood Urea Nitrogen 15 mg/dl (7-17); Calcium 8.3 mg/dl (8.4-10.2); Carbon Dioxide 21 mmol/L (22-30); Chloride 110 mmol/L (98-107); Estimated Creatinine Clearance 118 ml/min; Glucose 151 mg/dl (70-99); Potassium 4.5 mmol/L (3.5-5.1); Sodium 135 mmol/L (135-145); Total Bilirubin 10.4 mg/dl (0.2-1.3); Total Protein 5.8 g/dl (6.3-8.2); eGFR > 60.00
[2023-11-18 07:38] LABS: Glucose - Point of Care 148 mg/dl (70-99)
[2023-11-18] MEDS: COGENTIN 1 MG PO ×2 (08:15→20:35)
[2023-11-18] MEDS: NSS (PRESERVATIVE FREE) 10 ML IV (08:15)
[2023-11-18] MEDS: PROTONIX IV 40 MG IV (08:15)
[2023-11-18] MEDS: RISPERDAL 2 MG PO ×2 (08:15→20:35)
[2023-11-18] MEDS: NOVOLOG FLEXPEN-LOW RESISTANCE SC (08:19)
--- NOTE | 2023-11-18 09:28 | CON.ONC ---
Impression
Impression
Obstructive jaundice s/p EUS/ERCP with stent 11/15/23
Malignant appearing biliary stricture
Transaminitis
Normocytic anemia
Hx cognitive impairment
Plan
Plan
Follow CBC w/ diff and CMP daily
11/17 Hgb 10.2, Hc 30.4, PLT 273
Await patholoy
CA 19-9: 1392, CEA 6.60
Patient History
History of Present Illness
Dot Ang is a 58 year old female who presented to the ER, 11/14, with family due to concerns of diarrhea and appearing to be jaundiced. Her brother reported 2-3 loose stools daily accompanied by poor appetite x2 weeks. Denies nausea or
vomiting.Patient reports mild intermittent abdominal pain. Family noticed she 'appeared yellow' about 3 days go which was rapid onset. PCP performed outpatient labs which revealed very high bilirubin and she was advised to proceed to the ER for
further evaluation. CT imaging showed a mass at the pancreatic head with biliary and pancreatic duct dilation. She was scheduled for EUS/ERCP with biliary decompression on 11/14 with GI. A severe biliary stricture was identified to be malignant
appearing and a plastic stent was placed into left hepatic duct.
Patient Medication
Medication Instructions Recorded Confirmed Last Taken Type
benztropine 1 mg tablet 1 mg PO BID Mental Health/Anxiety 11/15/23 11/15/23 11/14/23 History
risperidone 2 mg tablet 2 mg PO BID Mental Health/Anxiety 11/15/23 11/15/23 11/14/23 History
Active Medications
Generic Name Dose Route Start Last Admin
Trade Name Freq PRN Reason Stop Dose Admin
Benztropine Mesylate 1 mg 11/15/23 08:00 11/18/23 08:15
Benztropine 1 Mg Tablet PO 12/13/23 07:59 1 mg
BID BLAKE Administration
Dextrose 12.5 grams 11/15/23 07:07
Dextrose 50% (0.5 Grams/Ml) 50 Ml Syringe IV 12/13/23 07:06
[id number] PRN
hypoglycemia
Protocol
Glucagon 1 mg 11/15/23 07:07
Glucagon 1 Mg Vial IM 12/13/23 07:06
PRN PRN
hypoglycemia
Protocol
Hydromorphone HCl 0.5 mg 11/15/23 07:07
Hydromorphone 0.5 Mg/0.5 Ml Syringe IV 11/29/23 07:06
Q4HPRN PRN
severe pain
Hydroxyzine HCl 10 mg 11/15/23 07:07
Hydroxyzine 10 Mg Tablet PO 12/13/23 07:06
QIDPRN PRN
Itching
Insulin Aspart 0 units 11/15/23 07:30 11/18/23 08:19
Insulin Aspart Low Resistance 300 Units/3 Ml Pen.Injctr SC 12/13/23 07:29 Not Given
AC BLAKE
Protocol
Ondansetron HCl 4 mg 11/15/23 07:07
Ondansetron 4 Mg/2 Ml Vial IV 12/13/23 07:06
Q6HPRN PRN
nausea and vomiting
Pantoprazole Sodium 40 mg 11/15/23 08:00 11/18/23 08:15
Pantoprazole Sodium 40 Mg/10 Ml Vial IV 12/13/23 07:59 40 mg
DAILY BLAKE Administration
Risperidone 2 mg 11/15/23 08:00 11/18/23 08:15
Risperidone 2 Mg Tablet PO 12/13/23 07:59 2 mg
BID BLAKE Administration
Sodium Chloride 10 ml 11/15/23 08:00 11/18/23 08:15
Sodium Chloride 0.9% (Preservative Free) 10 Ml Vial IV 12/13/23 07:59 10 ml
DAILY BLAKE Administration
Sodium Chloride 0 flush 11/17/23 10:00
Sodium Chloride 0.9% (Flush) Syringe IV 12/15/23 09:59
PER PROTOCOL BLAKE
Physical Exam
Labs
Lab Results
WBC 6.5 10^3/uL (4.8-10.8) 11/18/23 05:09
RBC 3.17 10^6/uL (4.20-5.40) L 11/18/23 05:09
Hgb 10.2 g/dL (12.0-16.0) L 11/18/23 05:09
Hct 30.4 % (37.0-47.0) L 11/18/23 05:09
MCV 95.9 fL (81.0-99.0) 11/18/23 05:09
MCH 32.2 pg (27.0-31.0) H 11/18/23 05:09
MCHC 33.6 g/dL (33.0-37.0) 11/18/23 05:09
RDW 16.2 % (11.5-14.5) H 11/18/23 05:09
Plt Count 273 10^3/uL (130-400) 11/18/23 05:09
MPV 11.0 fL (7.4-10.4) H 11/18/23 05:09
Abs Immat Gran (auto) 0.1 10^3/uL (0-0.05) H 11/18/23 05:09
Absolute Neuts (auto) 4.7 10^3/uL (1.4-6.5) 11/18/23 05:09
Absolute Lymphs (auto) 1.3 10^3/uL (1.2-3.4) 11/18/23 05:09
Absolute Monos (auto) 0.4 10^3/uL (0.1-0.6) 11/18/23 05:09
Absolute Eos (auto) 0.1 10^3/uL (0-0.7) 11/18/23 05:09
Absolute Basos (auto) 0.0 10^3/uL (0-0.2) 11/18/23 05:09
Immature Gran % 0.9 % (0-0.5) H 11/18/23 05:09
Neutrophils % 71.7 % (42.2-75.2) 11/18/23 05:09
Lymphocytes % 19.4 % (20.5-51.1) L 11/18/23 05:09
Monocytes % 6.3 % (1.7-9.3) 11/18/23 05:09
Eosinophils % 1.4 % (0-6) 11/18/23 05:09
Basophils % 0.3 % (0-2) 11/18/23 05:09
Creatinine 0.6 mg/dL (0.6-1.0) 11/18/23 05:09
Vital Signs
Vital Signs
Temp Pulse Resp BP Pulse Ox
97.2 F 59 16 123/60 95
11/18/23 07:30 11/18/23 06:00 11/18/23 06:00 11/18/23 06:00 11/18/23 00:00
--- NOTE | 2023-11-18 09:43 | W.PN.HOSP.TC ---
Today's Communication/Plan
-
Stable for telemetry
Assessment / Plan
Assessment / Plan
Obstructive jaundice
Pancreatic head mass
-Likely due to pancreatic head mass. Strong suspicion for pancreatic cancer. CA 19�9 1392
-S/p successful EUS/ERCP 11/14. Single severe biliary stricture noted in the lower third of the main bile duct. Appeared to be malignant. Severe CBD dilation noted. Biliary sphincterotomy performed and plastic stent placed in the left hepatic
duct.
-LFTs improving. Tolerating solid food.
-Abdominal MRI ordered, still pending.
-Elevated LFTs due to obstructive mass.
-Oncology and GI following
Normocytic anemia
-Hemoglobin 10.2. Suspect hemodilution from IV fluids accounting for drop in hemoglobin. No clinical evidence of bleeding. Monitor for now.
High anion gap metabolic acidosis
-Status post sodium bicarb IV fluids, start oral sodium bicarb
Hypokalemia
-Resolved. Magnesium normal.
Impaired fasting glucose
-Hemoglobin A1c 5.9%. Hyperglycemia also related to pancreatic mass.
Bipolar disorder
Cognitive impairment
Obesity due to excess calories
-Affects all aspects of care
DVT prophylaxis�subcu Lovenox
Full code
Physical exam
Gen-AAOx3, NAD
HEENT-NC, AT, bilateral scleral icterus, clear oral mm
Neck-supple
CV-reg, no M, +S1/S2
Lungs-clear B/L
Abd-soft, NT, ND
Ext-no edema
Musculoskeletal-no cyanosis, clubbing
Skin-warm and dry, diffusely jaundiced
Neuro-grossly non-focal
Psych-calm, cooperative
Anticipated Discharge: 24 - 48 hours
Subjective/Interval History
-
Date of Service: November 18, 2023
Patient denies abdominal pain, no nausea, no vomiting. No shortness of breath. No fever.
Objective Data
-
Labs:
Laboratory Results
11/18/23
05:09
WBC 6.5
Hgb 10.2 L
Hct 30.4 L
Plt Count 273
Sodium 135
Potassium 4.5
Chloride 110 H
Carbon Dioxide 21 L
BUN 15
Creatinine 0.6
Glucose 151 H
Calcium 8.3 L
Total Bilirubin 10.4 H
AST 77 H
ALT 62 H
Alkaline Phosphatase 708 H
Vital Signs:
Vital Signs
Temp Pulse Resp BP Pulse Ox
97.2 F 59 16 123/60 95
11/18/23 07:30 11/18/23 06:00 11/18/23 06:00 11/18/23 06:00 11/18/23 00:00
I&O
11/17/23 11/18/23 11/19/23
06:59 06:59 06:59
Intake Total 1560 / 1560 1260 / 1260
Output Total 200 / 200 250 / 250
Balance 1360 / 1360 1010 / 1010
[2023-11-18] MEDS: SODIUM BICARBONATE 1300 MG PO ×3 (10:40→21:45)
[2023-11-18 11:34] LABS: Glucose - Point of Care 270 mg/dl (70-99)
[2023-11-18] MEDS: NOVOLOG FLEXPEN-LOW RESISTANCE 3 UNITS SC (11:46)
[2023-11-18] MEDS: NOVOLOG FLEXPEN-LOW RESISTANCE 1 UNITS SC (17:06)
[2023-11-18] MEDS: LOVENOX 40 MG SC (17:07)
[2023-11-18 17:16] LABS: Glucose - Point of Care 176 mg/dl (70-99)
--- NOTE | 2023-11-18 18:36 | CON.ONC ---
Impression
Impression
Pancreatic cancer, T2 Nx Mx, possible lymph node involvement on EUS
Jaundice
Unintentional weight loss
Plan
Plan
MRI liver, exclude met disease.
Await resolution of LFT abnormality.
Appears to be a surgical candidate so far. Could see Dr. Sunday Kraft or surgeon at [facility] (Jordan Barclay).
Thank you for consult, will follow along with you.
Patient History
History of Present Illness
The patient is a 58-year-old female with a past medical history significant for cognitive impairment, bipolar disorder, who presented to the emergency room with complaints of jaundice, abd pain, diarrhea, weight loss, loss of appetite. She denied
any nausea, vomiting, fevers, chills, chest pain, or shortness of breath. In the emergency room 11/13, ultrasound imaging showed a markedly enlarged gallbladder with biliary ductal dilation.� CT imaging was done showing severe intra and extrahepatic
biliary ductal dilation with a 3.4 cm mass in the pancreatic head and pancreatic ductal dilation.� Routine labs on admission showed bilirubin of 26.3, AST 121, ALT 90, alk phos 1081, lipase 27, glucose 227, lactic acid 1.0, BUN 14, creatinine 0.9.
She underwent ERCP 11/14 with finding of severe biliary stricture in lower 3rd of main bile duct. She underwent placement of plastic stent into L hepatic duct. Upon EUS, she was noted to have a 2.4 mm panc head mass two marsha-pancreatic nodes
measuring up to 1.2 cm. Staging was T2 Nx, path pending from transduodenal biopsy of panc mass.
Past-Medical/Surgical History
Past Medical History
Past Medical History: Psychiatric (Bipolar disorder) and Other (cognitive impairment)
Past Surgical History: Other (skin graft as a child, nasal cauterization for nosebleeds)
Social History
Tobacco: Non-Smoker
Alcohol: None
Drug: None
Personal: Single
Living: With Family (Lives with her brother)
Employment: Not Employed
Family History
Family History: Cancer (Lung cancer paternal grandfather) and Other (Cardiac disease among the patient's mother and paternal grandmother; brother Keith has A-fib)
Allergies / Home Medications
Patient Medication
Medication Instructions Recorded Confirmed Last Taken Type
benztropine 1 mg tablet 1 mg PO BID Mental Health/Anxiety 11/15/23 11/15/23 11/14/23 History
risperidone 2 mg tablet 2 mg PO BID Mental Health/Anxiety 11/15/23 11/15/23 11/14/23 History
Active Medications
Generic Name Dose Route Start Last Admin
Trade Name Freq PRN Reason Stop Dose Admin
Benztropine Mesylate 1 mg 11/15/23 08:00 11/18/23 08:15
Benztropine 1 Mg Tablet PO 12/13/23 07:59 1 mg
BID BLAKE Administration
Dextrose 12.5 grams 11/15/23 07:07
Dextrose 50% (0.5 Grams/Ml) 50 Ml Syringe IV 12/13/23 07:06
[id number] PRN
hypoglycemia
Protocol
Enoxaparin Sodium 40 mg 11/18/23 18:00 11/18/23 17:07
Enoxaparin Sodium 40 Mg/0.4 Ml Syringe SC 12/16/23 17:59 40 mg
QPM BLAKE Administration
Glucagon 1 mg 11/15/23 07:07
Glucagon 1 Mg Vial IM 12/13/23 07:06
PRN PRN
hypoglycemia
Protocol
Hydromorphone HCl 0.5 mg 11/15/23 07:07
Hydromorphone 0.5 Mg/0.5 Ml Syringe IV 11/29/23 07:06
Q4HPRN PRN
severe pain
Hydroxyzine HCl 10 mg 11/15/23 07:07
Hydroxyzine 10 Mg Tablet PO 12/13/23 07:06
QIDPRN PRN
Itching
Insulin Aspart 0 units 11/15/23 07:30 11/18/23 17:06
Insulin Aspart Low Resistance 300 Units/3 Ml Pen.Injctr SC 12/13/23 07:29 1 units
AC BLAKE Administration
Protocol
Ondansetron HCl 4 mg 11/15/23 07:07
Ondansetron 4 Mg/2 Ml Vial IV 12/13/23 07:06
Q6HPRN PRN
nausea and vomiting
Pantoprazole Sodium 40 mg 11/19/23 08:00
Pantoprazole 40 Mg Delayed Release Tablet PO 12/17/23 07:59
DAILY BLAKE
Risperidone 2 mg 11/15/23 08:00 11/18/23 08:15
Risperidone 2 Mg Tablet PO 12/13/23 07:59 2 mg
BID BLAKE Administration
Sodium Bicarbonate 1,300 mg 11/18/23 09:50 11/18/23 15:03
Sodium Bicarbonate 650 Mg Tablet PO 12/16/23 09:49 1,300 mg
TID BLAKE Administration
Sodium Chloride 0 flush 11/17/23 10:00
Sodium Chloride 0.9% (Flush) Syringe IV 12/15/23 09:59
PER PROTOCOL BLAKE
Review of Systems
-
History Source: Patient and Records
All Other Systems: Reviewed and Negative
Constitutional: Reports Weight Loss (20 lbs), No Appetite and Fatigue; Denies Fever
EENT: Reports No Symptoms
Respiratory: Reports No Symptoms
Cardiac: Reports No Symptoms
GI: Reports Abdominal Pain and Diarrhea; Denies Nausea or Vomiting
Breast: Reports No Symptoms
: Reports No Symptoms
Musculoskeletal: Reports No Symptoms
Skin: Reports No Symptoms
Neuro: Reports No Symptoms
Endocrine: Reports No Symptoms
Hematologic/Lymphatic: Reports No Symptoms
Allergy / Immunology: Reports No Symptoms
Psych: Reports No Symptoms
Physical Exam
-
General: Well Developed and Well Nourished
HEENT: Jaundice and Moist Mucous Membranes
Cardiology: Normal Sinus Rhythm, S1 and S2
Pulmonary: Clear
GI: Soft and Normal Bowel Sounds
Musculoskeletal: No Clubbing, No Cyanosis and No Edema
Extremities: Pulses Present; Negative Phlebitic Signs
Neurology: Other (oral tardive dyskinesia)
Skin: Warm and Dry
Hematologic / Lymphatic: Negative Lymphadenopathy
Psych: Calm and Other (flat affect)
Labs
Lab Results
WBC 6.5 10^3/uL (4.8-10.8) 11/18/23 05:09
RBC 3.17 10^6/uL (4.20-5.40) L 11/18/23 05:09
Hgb 10.2 g/dL (12.0-16.0) L 11/18/23 05:09
Hct 30.4 % (37.0-47.0) L 11/18/23 05:09
MCV 95.9 fL (81.0-99.0) 11/18/23 05:09
MCH 32.2 pg (27.0-31.0) H 11/18/23 05:09
MCHC 33.6 g/dL (33.0-37.0) 11/18/23 05:09
RDW 16.2 % (11.5-14.5) H 11/18/23 05:09
Plt Count 273 10^3/uL (130-400) 11/18/23 05:09
MPV 11.0 fL (7.4-10.4) H 11/18/23 05:09
Abs Immat Gran (auto) 0.1 10^3/uL (0-0.05) H 11/18/23 05:09
Absolute Neuts (auto) 4.7 10^3/uL (1.4-6.5) 11/18/23 05:09
Absolute Lymphs (auto) 1.3 10^3/uL (1.2-3.4) 11/18/23 05:09
Absolute Monos (auto) 0.4 10^3/uL (0.1-0.6) 11/18/23 05:09
Absolute Eos (auto) 0.1 10^3/uL (0-0.7) 11/18/23 05:09
Absolute Basos (auto) 0.0 10^3/uL (0-0.2) 11/18/23 05:09
Immature Gran % 0.9 % (0-0.5) H 11/18/23 05:09
Neutrophils % 71.7 % (42.2-75.2) 11/18/23 05:09
Lymphocytes % 19.4 % (20.5-51.1) L 11/18/23 05:09
Monocytes % 6.3 % (1.7-9.3) 11/18/23 05:09
Eosinophils % 1.4 % (0-6) 11/18/23 05:09
Basophils % 0.3 % (0-2) 11/18/23 05:09
Creatinine 0.6 mg/dL (0.6-1.0) 11/18/23 05:09
CA 19-9 -- 1392
Vital Signs
Vital Signs
Temp Pulse Resp BP Pulse Ox
98.1 F 66 20 131/73 95
11/18/23 15:27 11/18/23 14:17 11/18/23 14:17 11/18/23 14:17 11/18/23 14:00
--- NOTE | 2023-11-18 20:00 | PTCARENOTE ---
Resumed care of pt laying in bed AAOx3. Pt at baseline with developmental delays. Pt appears to have flat affect and withdrawn. Brother called, pt stated she was too tired to talk to brother. HR in the 50's SB on the monitor. POX 98% on RA. Lungs
clear. + bowel. Round obese abd. Pt inc urine, brown and foul smelling. Priscilla care provided. Palpable peripheral pulses present. +1 B/L LE edema. Jaundiced skin. KNee high seq in place. Pt denies any complaints at this time. Pt positioned per
comfort. Will continue to monitor.
[2023-11-18 22:20] LABS: Glucose - Point of Care 255 mg/dl (70-99)
--- NOTE | 2023-11-18 23:20 | PTCARENOTE ---
Pt transferred to RM 324, Report given to Santos HENLEY to resume care. All belongings with pt.
--- NOTE | 2023-11-18 23:57 | PTCARENOTE ---
report received. pt transferred to 324. aaox3 w/ flat affect. nsr. vss. pt ambulated to bathroom w/ assistance. plan of are updated. call cheng within reach. will monitor.
[2023-11-19] VITALS (7 sets, daily range): BP systolic 97–128; BP diastolic 56–82; PULSE 84; BMI 34.6
[2023-11-19 06:35] LABS: Hematocrit 29.6 % (37.0-47.0); Hemoglobin 9.8 g/dL (12.0-16.0); Mean Corp Hgb Conc. 33.1 g/dL (33.0-37.0); Mean Corpuscular Hgb 32.2 pg (27.0-31.0); Mean Corpuscular Volume 97.4 fL (81.0-99.0); Mean Platelet Volume 11.5 fL (7.4-10.4); Platelet Count 266 10^3/uL (130-400); Red Blood Cell Count 3.04 10^6/uL (4.20-5.40); Red Cell Dist. Width 15.7 % (11.5-14.5); White Blood Cell Count 6.4 10^3/uL (4.8-10.8)
[2023-11-19 06:59] LABS: ALT (SGPT) 50 U/L (0-35); AST (SGOT) 51 U/L (14-36); Albumin 2.2 g/dl (3.5-5.0); Alkaline Phosphatase 619 U/L (38-126); Blood Urea Nitrogen 12 mg/dl (7-17); Calcium 8.4 mg/dl (8.4-10.2); Carbon Dioxide 27 mmol/L (22-30); Chloride 104 mmol/L (98-107); Estimated Creatinine Clearance 118 ml/min; Glucose 152 mg/dl (70-99); Magnesium 1.7 mg/dl (1.6-2.3); Phosphorus 2.7 mg/dl (2.5-4.5); Sodium 134 mmol/L (135-145); Total Protein 5.3 g/dl (6.3-8.2); eGFR > 60.00
--- NOTE | 2023-11-19 07:59 | W.PN.HOSP.TC ---
Today's Communication/Plan
-
see bold
Assessment / Plan
Assessment / Plan
Obstructive jaundice
Pancreatic head mass
-Likely due to pancreatic head mass. Strong suspicion for pancreatic cancer. CA 19�9 1392
-S/p successful EUS/ERCP 11/14. Single severe biliary stricture noted in the lower third of the main bile duct. Appeared to be malignant. Severe CBD dilation noted. Biliary sphincterotomy performed and plastic stent placed in the left hepatic
duct.
-LFTs improving. Tolerating solid food.
-Abdominal MRI shows improving bile duct dilatation, pancreatic head mass, likely pancreatic carcinoma, multiple hepatic lesions
-Oncology and GI following, continue to trend LFTs, discharge when cleared by oncology. GI signed off
-PT rec HH
Normocytic anemia
-Hemoglobin 9.8. Suspect hemodilution from IV fluids accounting for drop in hemoglobin. No clinical evidence of bleeding. Monitor for now.
High anion gap metabolic acidosis
-Status post sodium bicarb IV fluids, resolved on oral sodium bicarb
Hypokalemia
-Resolved. Magnesium normal.
Impaired fasting glucose
-Hemoglobin A1c 5.9%. Hyperglycemia also related to pancreatic mass.
Bipolar disorder
Cognitive impairment
Obesity due to excess calories
-Affects all aspects of care
DVT prophylaxis�subcu Lovenox
Full code
Physical exam
Gen-AAOx3, NAD
HEENT-NC, AT, bilateral scleral icterus, clear oral mm
Neck-supple
CV-reg, no M, +S1/S2
Lungs-clear B/L
Abd-soft, NT, ND
Ext-no edema
Musculoskeletal-no cyanosis, clubbing
Skin-warm and dry, diffusely jaundiced
Neuro-grossly non-focal
Psych-calm, cooperative
Anticipated Discharge: 24 - 48 hours
Subjective/Interval History
-
Date of Service: November 18, 2023
Patient denies abdominal pain, no nausea, no vomiting. She is tolerating her diet. No fever.
Objective Data
-
Labs:
Laboratory Results
11/18/23
05:09
WBC 6.5
Hgb 10.2 L
Hct 30.4 L
Plt Count 273
Sodium 135
Potassium 4.5
Chloride 110 H
Carbon Dioxide 21 L
BUN 15
Creatinine 0.6
Glucose 151 H
Calcium 8.3 L
Total Bilirubin 10.4 H
AST 77 H
ALT 62 H
Alkaline Phosphatase 708 H
Vital Signs:
Vital Signs
Temp Pulse Resp BP Pulse Ox
98.1 F 66 20 131/73 95
11/18/23 15:27 11/18/23 14:17 11/18/23 14:17 11/18/23 14:17 11/18/23 14:00
I&O
11/17/23 11/18/23 11/19/23
06:59 06:59 06:59
Intake Total 1560 / 1560 1260 / 1260
Output Total 200 / 200 250 / 250
Balance 1360 / 1360 1010 / 1010
[2023-11-19 08:04] LABS: Glucose - Point of Care 146 mg/dl (70-99)
[2023-11-19] MEDS: NOVOLOG FLEXPEN-LOW RESISTANCE SC (09:04)
[2023-11-19] MEDS: PROTONIX 40 MG PO (09:08)
[2023-11-19] MEDS: SODIUM BICARBONATE 1300 MG PO (09:08)
[2023-11-19] MEDS: RISPERDAL 2 MG PO ×2 (09:09→19:13)
[2023-11-19] MEDS: COGENTIN 1 MG PO ×2 (09:09→19:13)
[2023-11-19 12:04] LABS: Glucose - Point of Care 268 mg/dl (70-99)
--- NOTE | 2023-11-19 12:23 | CM ---
Addendum entered by CHASITY Tapia 11/19/23 16:02:
Received call from patient's brother who was able to provide information for assessment. Patient lives with her brother in a two story home with two steps to enter. She is independent with her bathing, dressing and personal care as well as
ambulation. 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 She does not drive but her brother takes her to her appointments and takes her shopping.
Patient's brother denied any DME in the home. She has never had VN services or been to a SNF.
Patient has a prescription plan and uses [facility] in [place] for all of her medications.
Her PCP is Dr. Fitz Modi.
Patient's brother stated that he works two minutes from home and will be able to keep an eye on patient when she is cleared to be discharged.
Plan: Case management will continue to follow and assist with discharge planning. Home when stable.
Original Note:
Received notification from CM co worker that patient's brother called x2. Returned call x2 however had to leave voice mail messages. Will attempt again if no return call is received.
Plan: Case management will continue to follow and assist with discharge planning. Will continue to attempt to connect with patient's brother.
[2023-11-19] MEDS: NOVOLOG FLEXPEN-LOW RESISTANCE 3 UNITS SC ×2 (12:40→17:34)
[2023-11-19 17:01] LABS: Glucose - Point of Care 264 mg/dl (70-99)
[2023-11-19] MEDS: LOVENOX 40 MG SC (17:40)
[2023-11-19 21:45] LABS: Glucose - Point of Care 206 mg/dl (70-99)
[2023-11-20 03:05] VITALS: BP 115/60
--- NOTE | 2023-11-20 03:28 | DOWNTIME ---
There was a [employer] Downtime on 11/20/2023 from 0100 to 11/20/2023 at 0322. Downtime documentation of patient's care, including medication administrations, has been reconciled in the electronic record per guidelines. Refer to the
patient's paper chart under the miscellaneous tab to see printed paper medication records and downtime forms.
[2023-11-20 06:00] VITALS: BMI 34.8
[2023-11-20 06:23] LABS: Hematocrit 28.5 % (37.0-47.0); Hemoglobin 9.4 g/dL (12.0-16.0); Mean Corpuscular Hgb 32.3 pg (27.0-31.0); Mean Corpuscular Volume 97.9 fL (81.0-99.0); Mean Platelet Volume 11.4 fL (7.4-10.4); Platelet Count 268 10^3/uL (130-400); Red Blood Cell Count 2.91 10^6/uL (4.20-5.40); Red Cell Dist. Width 15.3 % (11.5-14.5); White Blood Cell Count 6.9 10^3/uL (4.8-10.8)
[2023-11-20 06:49] LABS: ALT (SGPT) 46 U/L (0-35); AST (SGOT) 49 U/L (14-36); Albumin 2.2 g/dl (3.5-5.0); Alkaline Phosphatase 512 U/L (38-126); Blood Urea Nitrogen 12 mg/dl (7-17); Calcium 8.5 mg/dl (8.4-10.2); Carbon Dioxide 22 mmol/L (22-30); Chloride 106 mmol/L (98-107); Estimated Creatinine Clearance 118 ml/min; Glucose 162 mg/dl (70-99); Potassium 4.1 mmol/L (3.5-5.1); Sodium 135 mmol/L (135-145); Total Bilirubin 7.4 mg/dl (0.2-1.3); Total Protein 5.3 g/dl (6.3-8.2); eGFR > 60.00
--- NOTE | 2023-11-20 07:09 | W.PN.ONC2 ---
Today's Communication / Plan
-
See above.
Liver mets confirmed by MRI. Path + adenoCa.
Diagnosis stage IV pancreatic ca in a 58 y/o cognitively impaired female. Might not be an ideal palliative chemotherapy candidate but await brother (POA) decision regarding systemic chemotherapy vs hospice in light of comorbidities (significant
cognitive impairment). Spoke with him about details of diagnosis.
Impression
Impression
Pancreatic cancer, ST IV with MRI evidence liver mets and possible lymph node involvement on EUS
Jaundice
Unintentional weight loss
History of bipolar disorder
Cognitive impairment - 9 y/o level
Plan
Plan
MRI liver + liver mets.
ERCP path + adenocarcinoma.
CA 19-9 was 1392.
Bili remains elevated. s/p biliary sphincterotomy and plastic stent x 1 was placed into the left hepatic duct.
Spoke with brother Layo that this makes her incurable with surgery and that she would need palliative chemotherapy vs palliative care (hospice) alone.
He seems overwhelmed with new information as he is relatively a new caregiver for her after his/her mom's .
He will think things over and will be by this afternoon.
Outpt F/U with us ([facility]) to review options and make a decision
Subjective/Objective
Chief Complaint
[facility] Oncology F/U
Subjective
Patient resting. Cognitive level of 9 y/o. Spoke with brother Layo Magana, designated spokesperson, contact number [phone] (H). He will be here this afternoon.
Vital Signs:
Vital Signs
Temp Pulse Resp BP Pulse Ox
98.3 F 63 18 115/60 97
11/20/23 03:05 11/20/23 03:05 11/20/23 03:05 11/20/23 03:05 11/20/23 03:05
Lab Results:
Laboratory Data
WBC 6.9 10^3/uL (4.8-10.8) 11/20/23 06:02
Hgb 9.4 g/dL (12.0-16.0) L 11/20/23 06:02
Plt Count 268 10^3/uL (130-400) 11/20/23 06:02
PT 21.4 Sec (11.4-14.6) H 11/15/23 01:16
INR 1.84 11/15/23 01:16
APTT 50.3 Sec (23.4-35.0) H 11/15/23 01:16
eGFR > 60.00 11/20/23 06:02
Physical Exam
Cardiology: Normal Sinus Rhythm
Pulmonary: Clear
GI: Soft
Extremities: No C/C/E
[2023-11-20 07:30] VITALS: BP 143/72
--- NOTE | 2023-11-20 08:16 | W.PN.HOSP.TC ---
Today's Communication/Plan
-
discharge
Assessment / Plan
Assessment / Plan
Obstructive jaundice
Pancreatic head mass
-Likely due to pancreatic head mass. Strong suspicion for pancreatic cancer. CA 19�9 1392
-S/p successful EUS/ERCP 11/14. Single severe biliary stricture noted in the lower third of the main bile duct. Appeared to be malignant. Severe CBD dilation noted. Biliary sphincterotomy performed and plastic stent placed in the left hepatic
duct.
-LFTs improving. Tolerating solid food.
-Abdominal MRI shows improving bile duct dilatation, pancreatic head mass, likely pancreatic carcinoma, multiple hepatic lesions
-PT rec HH
-Oncology and GI following, GI signed off, LFTs improving
-Oncology eval appreciated Liver Mets confirmed by MRI pathology positive for adenocarcinoma, Stage IV pancreatic Ca discussed with patient's POA brother Keith regarding considering systemic chemotherapy vs hospice in light of comorbidities
(significant cognitive impairment)
-Patient otherwise medically stable, Brother requesting to bring patient home and he will follow up with oncology and decide from there. Declines home services and palliative eval at this time.
Normocytic anemia
-H&H stable
-outpatient follow up CBC with primary recommended
High anion gap metabolic acidosis
-Status post sodium bicarb IV fluids, resolved on oral sodium bicarb
Hypokalemia
-Resolved. Magnesium normal.
Impaired fasting glucose
Prediabetes
-Hemoglobin A1c 5.9%. Hyperglycemia also related to pancreatic mass.
Bipolar disorder
Cognitive impairment
Obesity due to excess calories
-Affects all aspects of care
DVT prophylaxis�subcu Lovenox
Full code
Medically stable for discharge home with outpatient follow up recommendations. Brother HAYLEE Parker declines home services palliative care at this time.
Total Time Preparing Discharge ___45____ minutes including examination of the patient, summary of the hospital stay, instructions for continuing care to all relevant caregivers; and preparation of discharge records, prescriptions, and referral
forms if necessary.
Physical exam
Gen-AAOx3, NAD
HEENT-NC, AT, bilateral scleral icterus, clear oral mm
Neck-supple
CV-reg, no M, +S1/S2
Lungs-clear B/L
Abd-soft, NT, ND
Ext-no edema
Musculoskeletal-no cyanosis, clubbing
Skin-warm and dry, diffusely jaundiced
Neuro-grossly non-focal
Psych-calm, cooperative
Anticipated Discharge: Today
Subjective/Interval History
-
Date of Service: November 20, 2023
Reports feeling well. Denies any new acute issues at this time. Eager to go home.
Objective Data
-
Labs:
Laboratory Results
11/20/23
06:02
WBC 6.9
Hgb 9.4 L
Hct 28.5 L
Plt Count 268
Sodium 135
Potassium 4.1
Chloride 106
Carbon Dioxide 22
BUN 12
Creatinine 0.5 L
Glucose 162 H
Calcium 8.5
Total Bilirubin 7.4 H
AST 49 H
ALT 46 H
Alkaline Phosphatase 512 H
Vital Signs:
Vital Signs
Temp Pulse Resp BP Pulse Ox
98.0 F 74 18 143/72 98
11/20/23 07:30 11/20/23 07:30 11/20/23 07:30 11/20/23 07:30 11/20/23 07:30
I&O
11/19/23 11/20/23 11/21/23
06:59 06:59 06:59
Intake Total 1140 / 1140 480 / 480
Balance 1140 / 1140 480 / 480
[2023-11-20] MEDS: RISPERDAL 2 MG PO (09:04)
[2023-11-20] MEDS: PROTONIX 40 MG PO (09:04)
[2023-11-20] MEDS: COGENTIN 1 MG PO (09:04)
[2023-11-20] MEDS: SODIUM BICARBONATE 1300 MG PO (09:04)
[2023-11-20 09:06] LABS: Glucose - Point of Care 144 mg/dl (70-99)
[2023-11-20] MEDS: NOVOLOG FLEXPEN-LOW RESISTANCE SC ×2 (09:07→11:30)
--- NOTE | 2023-11-20 11:07 | W.DCSUMMARY ---
Discharge Summary
Discharge Data
Date of Admission: 11/15/23
Date of Discharge: 11/20/23
-
Pending Results: No
Hospital Course
58F with PMH significant for cognitive impairment who presented to ED for evaluation of gross jaundice. History obtained from brother at the bedside given patient's baseline cognitive impairment. Brother stated that patient has been having
issues with diarrhea lately - usually 2-3 loose stools per day. This has been accompanied by decreased appetite / PO intake and has been going on for the past 2 weeks or so. Patient has not had any N/V. She has had intermittent complaints of
abdominal pain - but fairly mild and self-limited. About 3 days ago, brother noted that she appeared yellow. He notes that this seemed to occur fairly quickly. They called the PCP and had labs done and were called today with results - including
very high bilirubin - patient was referred to the ED. Imaging was suggestive Obstructive jaundice, Pancreatic head mass strongly suspicious for pancreatic cancer. CA 19�9 1392. Successful EUS/ERCP was performed by GI 11/14. Single severe biliary
stricture noted in the lower third of the main bile duct. Appeared to be malignant. Severe CBD dilation noted. Biliary sphincterotomy performed and plastic stent placed in the left hepatic duct. LFTs improving. Tolerating solid food. Abdominal
MRI showed improving bile duct dilatation, pancreatic head mass, likely pancreatic carcinoma, multiple hepatic lesions. Oncology evaluation noted Liver Mets confirmed by MRI, pathology positive for adenocarcinoma. Stage IV pancreatic Ca, oncology
discussed with patient's POA brother Keith regarding considering systemic chemotherapy vs hospice in light of comorbidities (significant cognitive impairment). Patient otherwise medically stable, Brother requested to bring patient home and he will
follow up with oncology and decide from there, active treatment vs hospice. Declined home services and palliative eval at this time. Patient was subsequently discharged with outpatient follow up recommendations.
Discharge Plan
-
Patient Disposition: Home (Routine Discharge)
Discharge Diagnosis/Procedures: Stage IV Pancreatic Cancer, status post Endoscopic Ultrasound/Endoscopic retrograde cholangiopancreatography 11/14 biliar sphincterectomy stent placed left hepatic duct, anemia, prediabetes, Bipolar Disorder,
Cognitive Impairment, Obesity
Condition: Fair
Diet: Low Fat
Activity: As tolerated
Driving Restrictions: No driving
Bathing Restrictions: None
Blood Work: Please repeat CBC and CMP with primary care provider or oncology
Activity Restrictions/Additional Instructions:
Please follow up with primary care provider and Oncology in 1 week of discharge. In 2 -4 weeks of discharge, please follow up with GI.
Referrals:
Mike Hernandez MD [Active] - in two to four weeks
Fitz Modi MD [Family Provider] - in one week
Lakhwinder Dorado MD [Active] - in one week
Prescriptions:
Continued
risperidone 2 mg Tablet
2 mg PO BID
benztropine 1 mg Tablet
1 mg PO BID
Discharge Orders:
Discharge Patient (As Directed); Ordered 11/20/23
Ordered By: Yonathan Pleitez
Discharge Date and Time
Discharge Date/Time: 11/20/23 14:05
Print Language: CUBAN
[2023-11-20 11:30] VITALS: BP 130/59
[2023-11-20 12:46] LABS: Glucose - Point of Care 254 mg/dl (70-99)
--- NOTE | 2023-11-20 14:00 | PTCARENOTE ---
Patient has order for discharge. Explicitly told patient's brother to come up so this RN could go over discharge instructions considering patient's cognitive impairment.
Brother arrived in hospital lobby and told hospital staff he was refusing to come up. Assisted patient with getting dressed. Sent paper discharge instructions with patient. Removed IV. Patient wheeled down to hospital lobby by volunteer.
== END 2023-11-20 14:05 | disposition home or self-care (01) | DRG 435 ==
LOC: 3 WEST ACU 04:30
PROVIDERS: Emergency Medicine; Family Medicine; Hospitalist; Internal Medicine Gastroenterology; Radiology Diagnostic Radiology; ADMITTING PHYSICIAN Hospitalist; ATTENDING PHYSICIAN Internal Medicine; CONSULT PHYSICIAN Internal Medicine Gastroenterology; EMERGENCY PHYSICIAN Student in an Organized Health Care Education/Training Program; FAMILY PHYSICIAN Family Medicine; OTHER PHYSICIAN Internal Medicine Hematology & Oncology
PROC: BF111ZZ Fluoroscopy of Biliary and Pancreatic Ducts using Low Osmolar Contrast (ICD-10-PCS; 2023-11-15)
PROC: 0F768DZ Dilation of Left Hepatic Duct with Intraluminal Device, Via Natural or Artificial Opening Endoscopic (ICD-10-PCS; 2023-11-15)
PROC: 0F9G8ZZ Drainage of Pancreas, Via Natural or Artificial Opening Endoscopic (ICD-10-PCS; 2023-11-15)
DX: C25.0 Malignant neoplasm of head of pancreas (principal); K83.1 Obstruction of bile duct; E87.20 Acidosis, unspecified; C78.7 Secondary malignant neoplasm of liver and intrahepatic bile duct; R62.50 Unspecified lack of expected normal physiological development in childhood; F20.9 Schizophrenia, unspecified; F31.9 Bipolar disorder, unspecified; R73.9 Hyperglycemia, unspecified; E87.6 Hypokalemia; R41.89 Other symptoms and signs involving cognitive functions and awareness; R73.03 Prediabetes; R16.2 Hepatomegaly with splenomegaly, not elsewhere classified; R59.0 Localized enlarged lymph nodes; R73.01 Impaired fasting glucose; D64.9 Anemia, unspecified; K31.7 Polyp of stomach and duodenum; E66.09 Other obesity due to excess calories; Z68.34 Body mass index [BMI] 34.0-34.9, adult; Z80.1 Family history of malignant neoplasm of trachea, bronchus and lung; Z82.49 Family history of ischemic heart disease and other diseases of the circulatory system
CPT/HCPCS: 88173; 88305; 74177; 74183; 74330; 76000; 76700; 80053; 82010; 82248; 82378; 82962; 83036; 83605; 83690; 83735; 84100; 84439; 84443; 85025; 85027; 85610; 85730; 86301; 86705; 86706; 86709; 86803; 87340; 97116; 97162; 99291; A9575; C1769; C2617; Q9967

== ENCOUNTER 2024-01-18 22:34 | Inpatient (IN) | payer MEDICARE, OTHER, SELFPAY ==
[2024-01-18] VITALS (13 sets, daily range): BP systolic 51–99; BP diastolic 18–79
[2024-01-18] MEDS: TYLENOL/FEVERALL 650 MG RECTAL (20:13)
[2024-01-18] MEDS: NSS 2100 ML IV (20:19)
[2024-01-18 20:33] LABS: % Basophils 0.3 % (0-2); % Eosinophils 0.2 % (0-6); % Immature Granulocytes 1.3 % (0-0.5); % Lymphocytes 14.1 % (20.5-51.1); % Monocytes 1.4 % (1.7-9.3); % Neutrophils 82.7 % (42.2-75.2); Absolute Immature Granulocytes 0.1 10^3/uL (0-0.05); Absolute Lymphocytes 1.4 10^3/uL (1.2-3.4); Absolute Monocytes 0.1 10^3/uL (0.1-0.6); Absolute Neutrophils 7.9 10^3/uL (1.4-6.5); Hematocrit 26.3 % (37.0-47.0); Hemoglobin 7.7 g/dL (12.0-16.0); Mean Corp Hgb Conc. 29.3 g/dL (33.0-37.0); Mean Corpuscular Hgb 29.6 pg (27.0-31.0); Mean Corpuscular Volume 101.2 fL (81.0-99.0); Mean Platelet Volume 10.5 fL (7.4-10.4); Nucleated Red Blood Cells % 2.4 %; Platelet Count 554 10^3/uL (130-400); Red Cell Dist. Width 18.5 % (11.5-14.5); White Blood Cell Count 9.6 10^3/uL (4.8-10.8)
[2024-01-18 20:52] LABS: Albumin 2.5 g/dl (3.5-5.0); Alkaline Phosphatase 853 U/L (38-126); Blood Urea Nitrogen 43 mg/dl (7-17); Calcium 8.9 mg/dl (8.4-10.2); Carbon Dioxide < 5 mmol/L (22-30); Chloride 97 mmol/L (98-107); Glucose 156 mg/dl (70-99); Potassium 5.7 mmol/L (3.5-5.1); Sodium 135 mmol/L (135-145); Total Bilirubin 8.5 mg/dl (0.2-1.3); Total Protein 7.2 g/dl (6.3-8.2); eGFR 18.31
[2024-01-18 20:59] LABS: Troponin I 0.049 ng/ml
[2024-01-18 21:03] LABS: ALT (SGPT) 111 U/L (0-35); AST (SGOT) 975 U/L (14-36)
[2024-01-18 21:12] LABS: Lactic Acid > 24.0 mmol/L (0.7-2.0)
--- NOTE | 2024-01-18 21:17 | ED.GENMED ---
History of Present Illness
General
Chief Complaint: Fall
Source: ambulance crew
Exam Limitations: clinical condition
Time Seen by Provider: 01/18/24 20:08
Travel History
Have you had any contact with someone who has COVID-19?: Unable to Answer
Do you have any symptoms of coronavirus? Fever > 100 degrees, chills, cough, shortness of breath, sore throat, loss of taste or smell, muscle aches, or headache?: Unable to Answer
History of Present Illness
History of Present Illness:
58-year-old female who was diagnosed with pancreatic cancer who presents with profound weakness. Patient with fell out of a chair. There is a moment of unresponsiveness about this prior to arrival. After discussion with the patient's son, the
patient has been vomiting at home. The patient did not want a port placed for further treatment as there was discussions about chemotherapy. Patient does apparently have a stent and spread to the liver. The patient is unable to contribute to her
own history.
Past History
Past History
ED Past Medical History: Psychiatric and Other (Pancreatic cancer, biliary stent)
ED Past Surgical History: Other (Biliary stent)
Social History
Tobacco: Non-smoker
Alcohol: None
Living: with family
Phy Exam
Physical Exam
Physical Exam:
CONSTITUTIONAL Patient awake but very ill-appearing. Vital signs reviewed. Febrile. Cachectic
ENT dry MM
EYES eyes sunken, conjunctiva dry
NECK normal range of motion, Trachea midline, no jugular venous distention.
RESPIRATORY CHEST No respiratory distress noted, Chest expansion equal, Bilateral breath sounds clear.
CARDIOVASCULAR regular and tachycardic.
Abd Tender diffusely
UPPER EXTREMITY no cyanosis, no edema.
LOWER EXTREMITY no cyanosis, no edema.
NEURO awake but poorly follows commands.
SKIN jaundiced, appears volume and dry
Course
Orders/Labs/Results
Orders:
Orders
01/18/24 19:54
Acetaminophen [Tylenol/Feverall] 650 mg .ROUTE .STK-MED ONE
01/18/24 20:08
0.9% Sodium Chloride 1000 ml [Nss] 2,100 ml IV NOW STA
Acetaminophen [Tylenol/Feverall] 650 mg RECTAL NOW STA
01/18/24 20:09
CR Chest Portable - 1 View Urgent
Comment:
Reason For Exam: sepsis
Reason Study Needs to be Portable: Patient Unstable
01/18/24 20:15
Complete Blood Count/With Diff Urgent
Comprehensive Metabolic Panel Urgent
Lactic Acid Q4H
Comment: CANCEL 2nd LACTIC ACID IF 1st LACTIC ACID IS LESS THAN 2
Manual Differential Urgent
Troponin I Urgent
Blood Culture Q30M
MANUELA Source: Blood/Venous
Specimen Description:
Blood Culture Q30M
MANUELA Source: Blood/Venous
Specimen Description:
01/18/24 21:19
Piperacillin/Tazo 4.5 Gram [Zosyn] 4.5 gram in 100 ml IV NOW
01/18/24 21:46
NORepinephrine 4 MG/250 ML [Levophed] 4 mg in 250 ml IV NOW
Initial dose in mcg/min, then titrate:: 2
Titrate to keep:: MAP > 65 mmHg
Titrate by mcg/min:: 1-2 mcg/min
Frequency of titrations (minutes):: 5
Maximum dose in ICU in mcg/min:: 30
Maximum dose in IMU in mcg/min:: 8
Maximum dose in IVU in mcg/min:: 4
Begin to taper infusion when:: Remained at goal for 4hrs
Taper by mcg/min:: 1-2 mcg/min
Frequency of taper (minutes) if patient maintains goal:: 30
Taper to off?: Yes
If infusion off & no longer maintaining goal:: Contact Provider
01/18/24 21:53
Piperacillin/Tazo 4.5 Gram [Zosyn] 4.5 gram in 100 ml .ROUTE .STK-MED
01/18/24 22:18
Admit/Transfer Patient As Directed
Co-Sign Provider:
Level of Care: Inpatient admission
Assign to:: ICU
Physician / Group: devang
Diagnosis: septic shock
Reason for Hospitalization: septic shock
Expected length of stay greater than two midnights?: Yes
ELOS- Estimated Length of Stay in days: 3
I certify the patient meets the requirements for IP care: Yes
01/18/24 22:20
Code Status As Directed
Resuscitation Status: Full Code
01/18/24 22:28
DNR Bracelet Application ONCE
01/18/24 22:28
Code Status As Directed
Resuscitation Status: Do not resuscitate
Reached after discussion with pt or family/Healthcare POA: Yes
01/18/24 22:38
0.9% Sodium Chloride 1000 ml [Nss] 1,000 ml IV 200 mls/hr
01/18/24 23:37
NORepinephrine 4 MG/250 ML [Levophed] 4 mg in 250 ml IV PER PROTOCOL
Currently infusing. Continue current dose and titrate:: Yes
Titrate to keep:: SBP > 90 mmHg
Titrate by mcg/min:: 1-2 mcg/min
Frequency of titrations (minutes):: 5
Maximum dose in ICU in mcg/min:: 30
Maximum dose in IMU in mcg/min:: 8
Maximum dose in IVU in mcg/min:: 4
Begin to taper infusion when:: Remained at goal for 4hrs
Taper by mcg/min:: 1-2 mcg/min
Frequency of taper (minutes) if patient maintains goal:: 30
Taper to off?: Yes
If infusion off & no longer maintaining goal:: Contact Provider
01/18/24 23:37
Activity As Directed
Activity Level: As Tolerated
Intake/ Output As Directed
Frequency: Per unit guidelines
Pneumatic Compression Sleeves As Directed
Type: Thigh high
Vital Signs As Directed
Frequency: Per unit guidelines
DX Deep Vein Thrombosis Video Routine
01/18/24 23:45
VANCOMYCIN Pharmacy to Dose [VANCOCIN Pharmacy to Dose] 1 each Pharmacy To Prepare [Call Pharmacy To Prepare] 0 ml IV PER PROTOCOL
01/19/24 00:30
Lactic Acid Q4H
Comment: CANCEL 2nd LACTIC ACID IF 1st LACTIC ACID IS LESS THAN 2
01/19/24 02:00
Troponin I Q6H
01/19/24 05:00
Lactic Acid Q4H
Comment: repeat q4 hours x 4 or until less than 2 mmol/L
01/19/24 Breakfast
Regular
At Your Request: Non-Participating
Complete Blood Count/No Diff IN AM
Comprehensive Metabolic Panel IN AM
01/19/24 08:00
Troponin I Q6H
Benztropine [Cogentin] 1 mg PO BID
Risperidone [Risperdal] 2 mg PO BID
01/19/24 09:00
Lactic Acid Q4H
Comment: repeat q4 hours x 4 or until less than 2 mmol/L
01/19/24 14:00
Troponin I Q6H
01/20/24 06:00
Complete Blood Count/No Diff IN AM
Comprehensive Metabolic Panel IN AM
01/21/24 06:00
Complete Blood Count/No Diff IN AM
Comprehensive Metabolic Panel IN AM
01/22/24 06:00
Complete Blood Count/No Diff IN AM
Comprehensive Metabolic Panel IN AM
01/23/24 06:00
Complete Blood Count/No Diff IN AM
Comprehensive Metabolic Panel IN AM
Abnormal Lab Results
01/18/24
20:15
RBC 2.60 L 10^6/uL
(4.20-5.40)
Hgb 7.7 L g/dL
(12.0-16.0)
Hct 26.3 L %
(37.0-47.0)
MCV 101.2 H fL
(81.0-99.0)
MCHC 29.3 L g/dL
(33.0-37.0)
RDW 18.5 H %
(11.5-14.5)
Plt Count 554 H 10^3/uL
(130-400)
MPV 10.5 H fL
(7.4-10.4)
Abs Immat Gran (auto) 0.1 H 10^3/uL
(0-0.05)
Absolute Neuts (auto) 7.9 H 10^3/uL
(1.4-6.5)
Immature Gran % 1.3 H %
(0-0.5)
Neutrophils % 82.7 H %
(42.2-75.2)
Lymphocytes % 14.1 L %
(20.5-51.1)
Monocytes % 1.4 L %
(1.7-9.3)
Abs Neuts (Manual) 6.7 H 10^3/uL
(1.4-6.5)
Band Neutrophils 11 H %
(0-3)
Lymphocytes (Manual) 17 L %
(20-51)
Potassium 5.7 H mmol/L
(3.5-5.1)
Chloride 97 L mmol/L
(98-107)
Carbon Dioxide < 5 L* mmol/L
(22-30)
BUN 43 H mg/dl
(7-17)
Creatinine 2.9 H mg/dL
(0.6-1.0)
Glucose 156 H mg/dl
(70-99)
Lactic Acid > 24.0 H* mmol/L
(0.7-2.0)
Total Bilirubin 8.5 H mg/dl
(0.2-1.3)
AST 975 H* U/L
(14-36)
ALT 111 H U/L
(0-35)
Alkaline Phosphatase 853 H U/L
(38-126)
Troponin I 0.049 H* ng/ml
Albumin 2.5 L g/dl
(3.5-5.0)
01/18/24 20:15
01/18/24 20:15
Vital Signs
Initial and Last Documented VS:
Initial Vital Signs
Temp Pulse Resp BP Pulse Ox
101.8 F H 118 20 85/48 92
01/18/24 19:48 01/18/24 19:48 01/18/24 19:48 01/18/24 19:48 01/18/24 19:48
Last Documented Vital Signs
Temp Pulse Resp BP Pulse Ox
96.5 F L 94 36 69/18 100
01/18/24 23:35 01/18/24 23:31 01/18/24 23:31 01/18/24 23:16 01/19/24 00:17
MDM/Problems Addressed
MDM/Problems Addressed:
Septic shock, pancreatic cancer, biliary obstruction, suspected peritonitis with free air
*Radiology
Radiology exam reviewed: other (Free air noted in the abdomen)
*Pulse Oximetry
Patient hypoxic: yes
*Telecom Field Technician Interpretation
Rate: tachycardiac
Interpretation: abnormal
Rhythm: sinus
*Critical Care Note
Total Time (30-74mins, 75-104mins- exclusive of procedures): 55 minutes
Data Reviewed
Source: family
Further Testing Considered But Not Given:
Consider CT of the abdomen but brother is considering comfort measures only.
Patient Management
Discussion with other providers: Hospitalist
Escalation/DeEscalation of care consider admission/obs:
Lengthy discussion with the patient's family. Her brother is unable to come up to the emergency department. He does not want aggressive measures but does want IV fluids, IV antibiotics and vasopressors for now. He likely will pursue comfort
measures when he is able to see her. I did express the gravity of the situation and how sick she is and that she may not survive the night. He for sure does not want aggressive treatment with surgery or mechanical ventilation.
ED Attending Note
-
Portions of this chart may have been created with voice recognition software.� Occasional wrong word or��sound alike� substitutions may have occurred due to the inherent limitations of voice recognition software.
Discharge Plan
Departure
Patient Disposition: Admit
Date of Disposition: 01/18/24
Time of Disposition: 21:46
Admit to: IMU
Presentation/result/management discussed w/ accepting MD/DO: Hospitalist
Discharge Problem:
Septic shock, Pancreatic cancer, Acidosis, lactic, Peritonitis
Interventions
Interventions:
*Risk Screen - Suicide Last Done: 01/18/24 19:48
*General Assessment Last Done: 01/18/24 19:48
*Neglect/Abuse Screening Last Done: 01/18/24 19:48
ED- Fall Risk Assessment Last Done: 01/18/24 23:34
*ED COVID-19 Vaccine History Last Done: 01/18/24 19:48
*Nursing Disposition Last Done: 01/18/24 23:34
ED-Musculoskeletal Assessment Last Done: 01/18/24 21:08
ED- Neurological Assessment Last Done: 01/18/24 20:49
ED-Skin Assessment Last Done: 01/18/24 20:49
Discharge Date and Time
Discharge Date/Time: 01/18/24 23:35
[2024-01-18 21:41] LABS: Absolute Neutrophils -Man Diff 6.7 10^3/uL (1.4-6.5); Band Neutrophils 11 % (0-3); Lymphocytes 17 % (20-51); Metamyelocytes 6 % (-); Monocytes 3 % (2-9); Myelocytes 4 % (-); Normal RBC Morphology Yes; Nucleated Red Blood Cells 3 (-); Pathologist Reviewed No; Platelets Checked Yes; Segmented Neutrophils 59 % (42-75); Total Cells Counted 100
--- NOTE | 2024-01-18 21:51 | HPS.HSE ---
Family Physician
-
Family Physician: INTERVIEWE UNKNOWN - PT NOT
Chief Complaint
-
profound weakness
History of Present Illness
58 year old with stage IV pancreatic cancer presented to us with weakness. as per CARE DIRECTOR RN, patient was vomiting at home. she fell from the chair today. patient is cognitively impaired. lives with her brother. patient is poor historian. patient not
able to provide any history.
on arrival noted electrolyte imbalance, septic shock. received fluids, iv vanco and Zosyn. admitting for further management.
Medical History
Past Medical History
Past Medical History: Reports Other
Additional Past Medical History:
pancreatic ca
bipolar
cognitive impairment.
Past Surgical History: Reports Other
Social History
Unable to obtain full social history at this time due to: Acuity
Family History
Family History: Not pertinent
Allergies / Home Medications
Allergies reflects when Allergies were last updated in [facility].
Home Medications with original date entered in [facility]
Allergy/Medication List:
Allergies
Allergy/AdvReac Type Severity Reaction Status Date / Time
No Known Allergies Allergy Unverified 11/14/23 20:42
Home Medications
benztropine 1 mg tablet 1 mg PO BID Mental Health/Anxiety 11/15/23
risperidone 2 mg tablet 2 mg PO BID Mental Health/Anxiety 11/15/23
Review of Systems
-
Unable to obtain full review of systems at this time due to: Acuity
Physical Exam
Vital Signs
Vital Signs
Temp Pulse Resp BP Pulse Ox
101.8 F H 110 20 90/70 92
01/18/24 19:48 01/18/24 20:45 01/18/24 19:48 01/18/24 20:35 01/18/24 19:48
Physical Exam
General: Well Developed, Well Nourished and No Apparent Distress
HEENT: NormoCephalic, Moist mucous membranes and Atraumatic
Respiratory: Clear
Cardiac: S1/S2 and Regular Rhythm; No Murmur or Rub
GI: Soft, Non Tender, Non Distended and Normal Bowel Sounds; No Organomegaly
Rectal: Deferred by Provider
Musculoskeletal: No Clubbing, No Cyanosis and No Edema
Skin: No Rash
Neuro: Nonfocal/grossly intact
Laboratory Results
-
01/18/24 20:15
01/18/24 20:15
Laboratory Results
Lactic Acid > 24.0 mmol/L (0.7-2.0) H* 01/18/24 20:15
Total Bilirubin 8.5 mg/dl (0.2-1.3) H 01/18/24 20:15
AST 975 U/L (14-36) H* 01/18/24 20:15
ALT 111 U/L (0-35) H 01/18/24 20:15
Alkaline Phosphatase 853 U/L (38-126) H 01/18/24 20:15
Troponin I 0.049 ng/ml H* 01/18/24 20:15
Data Reviewed
-
Lab Data: Labs Reviewed by me
Impression/Plan
-
#septic shock
-sepsis as evident by hypotension, tachy, fever, lactic
-fluids continued
-chest x ray pending
-blood culture sent from ER
-zosyn, vanco continued
-Levophed continued to support BP
#acute hypoxic respiratory failure
-chest x ray pending
-continue supplemental oxygen to keep sat >92
-wean as tolerated
-ctm
#acute on chronic anemia likely from metastatic disease
-hgb 7.7
-ctm
#hyperkalemia, metabolic acidosis/acute kidney injury likely dehydration
-k 5.2, co2 5, cr 2.9,lactic acid 24.0
-normal saline continued
-monitor BMP in am
#hxt of stage iV pancreatic ca
-ast 975,alt 111,alk 853
-last admission, brother requested to take patient home and follow up with oncology
#elevated trop likely NSTEMI
-tro 0.049
-trend trop
Bipolar disorder
-risperidone and benztropine continued
Cognitive impairment
DVT prophylaxis
scd
DNR
[2024-01-18] MEDS: ZOSYN 100 IV (21:59)
[2024-01-18] MEDS: LEVOPHED 250 IV (22:06)
--- NOTE | 2024-01-18 22:26 | W.PN.UPDATE ---
Update Note
Progress Note Update
Attending addendum. Patient seen, and examined independently.
58-year-old woman, diagnosed with pancreatic cancer, presents with profound weakness. She fell out of a chair. The patient had been vomiting at home. Family reports that The patient did not want a port placed for further treatment as there was
discussions about chemotherapy. She does have a biliary stent and the cancer has spread to the liver. The patient is unable to contribute to her own history. At the time of my interview she was not responsive. ER physician spoke with public service administrator
(brother) who confirmed that the patient's code status is DNR. He is trying to come to the hospital when possible, which will likely be tomorrow.
Significant findings: Non-responsive to exam, tachypneic.
likely free air under the diaphragm
Temp 101.8
BP 90/70
Pulse 110
H/H 7.7/26.3
K 5.7
CO2 <5
BUN/Creat 43/2.9
Lactic acid >24
AST 975
ALT 111
Troponin 0.049
Aphos 853
A/P:
1. Metastatic end stage pancreatic cancer, with free air under diaphragm, and severe sepsis with shock.
Probable imminent
Supportive care tonight with transition to hospice in am, when family able to see her
High volume IV fluids
Broad spectrum antibiotics
Pressors
ICU admit
Code: DNR
SQ heparin for DVTP
[2024-01-18] MEDS: NSS 1000 IV (23:38)
--- NOTE | 2024-01-18 23:39 | PHA.VAN.IN ---
Assessment
- Assessment
Renal Function: Appears elevated from baseline (SCR 2.9 vs ~0.5)
Concomitant Antimicrobials: piperacillin/tazobactam
Plan
- Plan
Initial / Loading Dose: 2000mg - administration pending
Maintenance Regimen: dosing by level
Monitoring: consider for 01/19 - if SCR improves, may order one for 01/18
Pharmacokinetics Vancomycin I
- -
Patient Age: 58
Patient Sex: Female
Vancomycin Day #: 1
Indication: Other
Requesting Provider: Katia Lauren
Pertinent Antimicrobial Allergies:
NKDA
Height / Weight:
Actual Weight 70 kg
Pertinent Past Medical History: Metastatic pancreatic cancer
- Vital Signs / Lab Results
Temp Pulse Resp BP Pulse Ox
101.8 F H 94 36 69/18 98
01/18/24 19:48 01/18/24 23:31 01/18/24 23:31 01/18/24 23:16 01/18/24 22:40
Lab Results - Hematology
01/18/24
20:15
WBC 9.6
Band Neutrophils 11 H
Lab Results - Chemistry
01/18/24
20:15
BUN 43 H
Creatinine 2.9 H
Albumin 2.5 L
01/18/24
20:15
Lactic Acid > 24.0 H*
--- NOTE | 2024-01-18 23:48 | PTCARENOTE ---
Pt arrived to ICU room 3363 from ER at 2320. Received pt on Levophed at 12mcg/min. Pt awake but unable to assess orientation, pt is restless, when asked her name she mumbled something that vaguely sounded like 'Dot' but was not very clear. Pt
unable to answer any questions, staring straight up at the ceiling. Pt tachypneic with RR in mid/upper 30s. SpO2 98-100% on 4LNC. SR 90s on monitor. Pt jaundiced and mottled, skin cool and clammy. See nursing shift assessment flowsheet for full
assessment details. IVF started per order.
[2024-01-18] MEDS: SODIUM BICARBONATE 50 MEQ IV (23:58)
[2024-01-19] VITALS (9 sets, daily range): BP systolic 54–85; BP diastolic 17–55; BMI 25.4
[2024-01-19] MEDS: VANCOCIN 540 MG IV (00:33)
[2024-01-19 00:38] LABS: Urine Albumin Trace (Neg - Trace); Urine Bilirubin 2+ (Negative); Urine Color Amber; Urine Glucose Negative (Negative); Urine Ketone 1+ (Negative); Urine Leukocyte 1+ (Negative); Urine Nitrite Positive (Negative); Urine Occult Blood 1+ (Negative); Urine Urobilinogen 4+ (Neg - 1+)
[2024-01-19 00:41] LABS: Urine Character Cloudy (Clear)
[2024-01-19 00:50] LABS: INR 4.28; PT 41.2 Sec (11.4-14.6)
[2024-01-19 00:51] LABS: APTT 72.1 Sec (23.4-35.0)
[2024-01-19] MEDS: PITRESSIN 100 IV (01:00)
[2024-01-19 01:24] LABS: Urine Amorphous Seen; Urine Bacteria Many (Negative); Urine Mucus Moderate; Urine Squamous Cell >30 /LPF (Few); Urine Urothelial Cell >30 /LPF (FEW); Urine White Cell >100 /HPF (0-5)
--- NOTE | 2024-01-19 01:30 | W.PN.UPDATE ---
Update Note
Progress Note Update
Vasopressin started as second pressor for bp support. I spoke with Mr. Magana the patient's brother and he is unable to come until the morning possibly due to car trouble. Nursing was able to call him on Dana's hospital room phone and although
she wasn't able to respond to him, he was able to speak to her.
[2024-01-19 01:53] LABS: Lactic Acid > 24.0 mmol/L (0.7-2.0)
--- NOTE | 2024-01-19 01:56 | PTCARENOTE ---
Pt maxed on Levophed by 0045 and started on Vasopressin. Received x1 sodium bicarb push. House EXTRACORPOREAL CIRCULATION SPECIALIST had spoken with pt's brother and he requested to be called so the phone could be put by patient's ear. He was able to speak to the patient although she
could not respond to him in a meaningful way. Upon talking to the brother he was tearful that he was unable to get to the hospital due to car trouble and said he would try to make it by 0600. Around 0130 pt becoming increasingly restless,
continuously turning in bed and trying to bend her arms, which would cause distal occlusions for the IV infusions. Attempted new IV site but this was unsuccessful. Elbow immobilizers placed b/l. Pt then became very still with shallow breathing when
she had previously been labored and tachypneic. BP more hypotensive despite 2 pressors. Pt showing signs of actively dying, staff remained at bedside, pt went bradycardic to asystole at around 0155.
--- NOTE | 2024-01-19 02:10 | W.PN.DEATH ---
Pronouncement of
-
Called to see patient to pronounce.
No spontaneous heart tones or respirations noted.
Patient not responsive to verbal stimuli.
Patient is pronounced .
Time of : 01:55
Date of : [birth year]
Family Notified: Yes (Brother Mr. Magana)
--- NOTE | 2024-01-19 03:15 | PTCARENOTE ---
Post-mortem care done, pt's only belongings were her ID and insurance cards. These were placed in a patient belongings bag and the 'personal effects' identification tag tied to that bag, placed inside body bag and went to morgue with patient.
== END 2024-01-19 01:55 | disposition expired | DRG 871 ==
LOC: ICU 22:34
PROVIDERS: Registered Nurse; ADMITTING PHYSICIAN Internal Medicine; EMERGENCY PHYSICIAN Emergency Medicine
DX: A41.9 Sepsis, unspecified organism (principal); J96.01 Acute respiratory failure with hypoxia; K65.9 Peritonitis, unspecified; R65.21 Severe sepsis with septic shock; C25.9 Malignant neoplasm of pancreas, unspecified; E87.20 Acidosis, unspecified; N17.9 Acute kidney failure, unspecified; C78.7 Secondary malignant neoplasm of liver and intrahepatic bile duct; F31.9 Bipolar disorder, unspecified; R41.89 Other symptoms and signs involving cognitive functions and awareness; D63.8 Anemia in other chronic diseases classified elsewhere; E86.0 Dehydration; E87.5 Hyperkalemia; Z66 Do not resuscitate; W07.XXXA Fall from chair, initial encounter; Y93.9 Activity, unspecified; Y92.009 Unspecified place in unspecified non-institutional (private) residence as the place of occurrence of the external cause
CPT/HCPCS: 71045; 80053; 81003; 81015; 83605; 84484; 85025; 85610; 85730; 87040; 87077; 87086; 87147; 87186; 87205; 96361; 96365; 96367; 99291